=== PATIENT | female | born 1945 | race Caucasian/White ===

== ENCOUNTER 2017-04-16 05:11 | Inpatient (IN) | payer OTHER ==
[2017-03-29 09:11] VITALS: Ht 165.1 cm; Wt 85.8 kg
--- NOTE | 2017-03-29 09:45 | PAT Medication Instructions ---
Service Date Mar 29, 2017. Current Home Medication List Aspirin (Aspirin Ec), 81 MG PO QAM Atorvastatin (Lipitor), 40 MG PO HS Calcium Carbonate-Cholecalcife (Caltrate 600+D), 1 TAB PO BID Hydrocodone/Acetaminophen 5MG/325MG ([place] 5MG/325MG), 1 TABLET PO HS PRN for Pain Losartan Potassium (Cozaar), 50 MG PO QAM Meloxicam (Mobic), 15 MG PO QAM Misc Natural Products (Osteo Bi-Flex Triple Stre), 1 TAB PO BID Multivitamin (Multivitamin), 1 TAB PO QAM Naproxen (Aleve), 440 MG PO BID Omeprazole (Prilosec), 20 MG PO QAM Sertraline (Zoloft), 50 MG PO QAM Medication Instructions For Your Scheduled Surgery -Contact your surgeon for instructions for: Meloxicam (Mobic), 15 MG PO QAM Naproxen (Aleve), 440 MG PO BID - Hold the following medications 2 weeks prior to surgery: Misc Natural Products (Osteo Bi-Flex Triple Stre), 1 TAB PO BID - Hold the following medications the morning of surgery: Multivitamin (Multivitamin), 1 TAB PO QAM Losartan Potassium (Cozaar), 50 MG PO QAM Calcium Carbonate-Cholecalcife (Caltrate 600+D), 1 TAB PO BID - Take the following medications the morning of surgery with a sip of water: Omeprazole (Prilosec), 20 MG PO QAM Sertraline (Zoloft), 50 MG PO QAM Aspirin (Aspirin Ec), 81 MG PO QAM Hydrocodone/Acetaminophen 5MG/325MG ([place] 5MG/325MG), 1 TABLET PO HS PRN for Pain (if needed, can be taken up to four hours before surgery) - Take the following medications as scheduled the night before surgery: Calcium Carbonate-Cholecalcife (Caltrate 600+D), 1 TAB PO BID Atorvastatin (Lipitor), 40 MG PO HS Hydrocodone/Acetaminophen 5MG/325MG ([place] 5MG/325MG), 1 TABLET PO HS PRN for Pain (if needed) If you have any questions please call us at [phone] or [phone] or [phone]
--- NOTE | 2017-03-29 10:31 | DIAGNOSTIC IMAGING REPORT ---
CHEST 2 VIEWS ROUTINE HISTORY: 71 years-old Female pat preoperative exam. No acute chest complaints COMPARISON: None available TECHNIQUE: PA and lateral views of the chest FINDINGS: Cardiomediastinal and hilar silhouettes are within normal limits. There is no pneumothorax, pleural effusion, focal airspace consolidation or overt pulmonary edema. Mild right hemidiaphragmatic elevation. Mild degenerative changes are seen within the shoulders and spine. IMPRESSION: No acute process. The above report was generated using voice recognition software. It may contain grammatical, syntax or spelling errors. Electronically signed by: Floyd Shipley M.D. 03/29/2017 10:30 AM Dictated Date/Time: 03/29/2017 10:29 AM
[2017-03-29 11:22] LABS: BASO % 0.5 %; BASO ABS # 0.03 K/uL (0-0.2); EOS % 3.1 %; HEMOGLOBIN 12.5 g/dL (12.0-16.0); IG# 0.01 K/uL (0.00-0.02); LYMPH % 21.4 %; LYMPH ABS # 1.37 K/uL (1.2-3.4); MEAN CELL VOLUME 87.2 fL (80-100); MEAN CORPUSCULAR HEMOGLOBIN 28.7 pg (25-34); MEAN CORPUSCULAR HGB CONC 32.9 g/dl (32-36); MEAN PLATELET VOLUME 10.6 fL (7.4-10.4); MONO % 10.5 %; MONO ABS # 0.67 K/uL (0.11-0.59); NEUT % 64.3 %; NEUT ABS # 4.12 K/uL (1.4-6.5); PLATELET COUNT 236 K/uL (130-400); RED CELL DISTRIBUTION WIDTH CV 13.9 % (11.5-14.5); RED CELL DISTRIBUTION WIDTH SD 44.2 fL (36.4-46.3)
[2017-03-29 11:32] LABS: PTT PATIENT 27.4 SECONDS (21.0-31.0)
[2017-03-29 11:40] LABS: HEMOGLOBIN A1C 5.3 % (4.5-5.6)
[2017-03-29 11:52] LABS: ALBUMIN 3.9 gm/dl (3.4-5.0); CALCIUM 9.6 mg/dl (8.5-10.1); CREATININE 0.94 mg/dl (0.60-1.20); POTASSIUM 4.3 mmol/L (3.5-5.1)
--- NOTE | 2017-03-29 15:12 | HISTORY & PHYSICAL EXAMINATION ---
DATE OF ADMISSION: 04/16/2017 CHIEF COMPLAINT: Left hip pain. HISTORY OF PRESENT ILLNESS: Charisma is a 71-year-old female with a 2-year history of left hip pain. The patient rates her pain at 10/10. She has pain with her daily activities. She has limited standing and walking tolerance. Pain is worse with weightbearing. The patient has had hydrocodone, home exercise program, injections and sub acute care nurse over the years without relief. She has failed conservative treatment and is scheduled for a left hip replacement. PAST MEDICAL HISTORY: Hypertension, hypercholesterolemia. She denies heart disease, diabetes or DVT. PAST SURGICAL HISTORY: Hysterectomy and lumpectomy. SOCIAL HISTORY: The patient denies alcohol or tobacco use. She lives in a 2-maty home. She is and retired. FAMILY HISTORY: Negative for DVT. MEDICATIONS: Omeprazole 20 mg daily, multivitamin 1 daily, aspirin 81 mg daily, Caltrate 600 plus D2 tablets daily, Osteo Bi-Flex, glucosamine chondroitin, naproxen sodium 220 mg twice daily, sertraline 50 mg daily, losartan 50 mg daily, Meloxicam 15 mg daily, atorvastatin 40 mg daily, hydrocodone 5/325 p.r.n., Motrin 200 mg p.r.n., Advil 200 mg p.r.n. ALLERGIES: PENICILLIN CAUSED A RASH. REVIEW OF SYSTEMS: See HPI. Ten other systems reviewed, all negative. PHYSICAL EXAMINATION: VITAL SIGNS: Height 5 feet 5 inches, weight 189 pounds. BMI is 31. GENERAL: This is a well-developed, well-nourished female who is alert and oriented x3. Mood and affect are appropriate. HEENT: Normocephalic, atraumatic. Mucous membranes are moist and intact. NECK: Supple without lymphadenopathy. HEART: Regular rate and rhythm without murmurs, rubs or gallops. LUNGS: Clear to auscultation without wheezes or rhonchi. ABDOMEN: Soft and nontender. Bowel sounds are equal and active. EXTREMITIES: No ecchymosis, redness or warmth. ABDOMEN: Soft and nontender. Bowel sounds are equal and active. EXTREMITIES: No ecchymosis, redness or warmth. Thigh and calf are soft and nontender. Log roll of the hip reproduces pain in the groin. Range of motion is decreased. She is neurovascularly intact with +5/5 strength. She has +1 distal edema. She walks with an antalgic gait. X-RAY EXAMINATION: AP and lateral views show severe joint space narrowing and osteophyte formation. IMPRESSION: Degenerative joint disease, left hip. PLAN: The patient will be admitted for a left total hip arthroplasty. We will plan on aspirin for DVT prophylaxis.
[~2017-04-16] VITALS: Ht 165.1 cm; Wt 85.8 kg
[~2017-04-16 05:11] MED LIST: ASPI81TA28 PO; ATOR-24 PO; CALC-354 PO; HYDR-5688 PO; LOSA50TA6 PO; MELO7.5T5 PO; MISCTAB88 PO; MULT-506 PO; NAPR1TAB9 PO; PRLSR20 PO; SERT50TA PO
[2017-04-16 05:41] VITALS: BP 129/73; PULSE 92; TEMP 36.7; O2SAT 97
[2017-04-16] MEDS ORDERED: METOCLOPRAMIDE HCL 10 MG TAB PO SCH (06:00)
[2017-04-16] MEDS ORDERED: LACTATED RINGER'S 1000ML 500 ML IV SCH (06:00)
[2017-04-16] MEDS ORDERED: ACETAMINOPHEN 500 MG TAB PO SCH (06:00)
[2017-04-16] MEDS ORDERED: DEXAMETHASONE 4 MG TAB PO SCH (06:00)
[2017-04-16] MEDS ORDERED: LACTATED RINGER'S 1000ML 1,000 ML IV SCH (06:00)
[2017-04-16] MEDS ORDERED: TRANEXAMIC ACID INJ 1,000 MG x 2 Bags IV SCH ×2 (06:00)
[2017-04-16] MEDS ORDERED: CeleBREX 200 MG CAP PO SCH (06:00)
[2017-04-16] MEDS ORDERED: ROPIVACAINE 5MG/ML 30 ML 150 MG, BUPIVACAINE 0.5% MPF INJ 30 ML, EpINEphrine HCL INJ 0.... INFIL SCH ×8 (06:00)
[2017-04-16] MEDS ORDERED: GABAPENTIN 900 MG PO SCH (06:00)
[2017-04-16] MEDS ORDERED: CEFAZOLIN 2000MG IV PUSH 15 ML IV SCH (06:00)
[2017-04-16] MEDS ORDERED: FAMOTIDINE 20 MG TAB PO SCH (06:00)
[2017-04-16] MEDS ORDERED: MIDAZOLAM HCL 1 MG/ML 2ML VIAL ONE ×3 (06:25→12:39)
[2017-04-16] MEDS ORDERED: LIDOCAINE HCL 2% 2 ML VIAL (20MG/ML) ONE (06:25)
[2017-04-16] MEDS ORDERED: PROPOFOL IV EMULSION 10 MG/ML 20 ML VIAL IV ONE (06:25)
[2017-04-16] MEDS ORDERED: FENTANYL CITRATE INJ 50 MCG/1 ML 2 ML VIAL ONE (06:25)
[2017-04-16] MEDS ORDERED: BUPIVACAINE 0.5 % 5 MG/1 ML PF 10ML VIAL ONE (06:29)
[2017-04-16] MEDS ORDERED: ORTHO JOINT ANESTHETIC ONE (10:12)
[2017-04-16] MEDS ORDERED: POVIDONE-IODINE OP SOLN 30 ML BTL ONE (10:12)
[2017-04-16] MEDS ORDERED: BACITRACIN 50000 UNIT VIAL ONE (10:12)
[2017-04-16] MEDS ORDERED: VANCOMYCIN 1GM/270ML NSS ONE (10:12)
[2017-04-16] MEDS ORDERED: EpHEDrine SULFATE INJ 50 MG/ML AMP IV PRN (10:15)
[2017-04-16] MEDS ORDERED: ONDANSETRON INJ 2 MG/ML 2 ML VIAL IV PRN ×2 (10:15→12:15)
[2017-04-16] MEDS ORDERED: FENTANYL CITRATE INJ 50 MCG/1 ML 2 ML VIAL IV PRN (10:15)
[2017-04-16] MEDS ORDERED: HYDROmorphone INJ 1 MG/ML SYR IV PRN (10:15)
[2017-04-16] MEDS ORDERED: ATROPINE SULFATE 0.1 MG/ML 5ML SYR IV PRN (10:15)
[2017-04-16] MEDS ORDERED: GABAPENTIN 300 MG CAP PO ONE (10:22)
[2017-04-16] MEDS ORDERED: NURSING VERBAL MED ORDER ONE (10:30)
--- NOTE | 2017-04-16 10:33 | CARDIOLOGY CONSULTATION ---
DATE OF CONSULTATION: 04/16/2017 PERTINENT HISTORY: Mrs. Swan is a 71-year-old white female admitted today through the preoperative holding area for left hip replacement surgery with Dr. Colon. The patient was found to be in atrial fibrillation when placed on the monitor. This consultation was ordered to assist in her cardiac management. The patient has never known of a diagnosis of atrial fibrillation. She has never known of a cardiac event. She has never experienced palpitations or exercise intolerance. She further denies angina pectoris, limiting dyspnea, syncope, presyncope, PND, orthopnea, lower extremity edema, and claudication. We have had a long discussion regarding the management of atrial fibrillation. PAST MEDICAL HISTORY: 1. Paroxysmal atrial fibrillation. 2. Hypertension. 3. Hypercholesterolemia. 4. GERD. 5. Hysterectomy. 6. History of breast biopsy. OUTPATIENT MEDICATIONS: 1. Losartan 50 mg daily. 2. Lipitor 40 mg at bedtime. 3. Omeprazole 20 mg daily. 4. Caltrate 600 mg daily. 5. Zoloft 50 mg per day. 6. Multivitamin daily. 7. Aspirin 81 mg per day. ALLERGIES: PENICILLIN - RASH. SOCIAL HISTORY: The patient is and lives with her . Does not use tobacco or alcohol. She resides in [place], [place]. FAMILY HISTORY: No early coronary artery disease. REVIEW OF SYSTEMS: A 10-point review of systems was negative except for that described above. PHYSICAL EXAMINATION: GENERAL: This is a well-developed, well-nourished white female lying supine in bed without complaints. VITAL SIGNS: Blood pressure is 130/70 with an irregular pulse of 90. Respiratory rate is 18 and the patient is afebrile at 36.7 degrees Celsius. Saturations 97% on room air. HEENT: Negative. NECK: Supple with full carotid upstrokes. There are no carotid bruits. Jugular venous pressure is flat at 90 degrees. There is no thyromegaly. CARDIOVASCULAR: Reveals an irregular regular rhythm with distant heart sounds. No obvious murmurs. No S3. LUNGS: Clear without rales, rhonchi, or wheezes. ABDOMEN: Soft and nontender without bruits. EXTREMITIES: Reveal intact radial artery pulse bilaterally. There is no peripheral edema. DATA: CBC notes hemoglobin of 12.5, hematocrit 38.0, white count 6.4, and platelet count 236,000. Electrolytes note a sodium of 138, potassium 4.3, chloride 107, bicarbonate 25, BUN 34, creatinine 0.94, glucose 105. INR is normal at 1.0. Preoperative EKG performed on March 29 notes sinus rhythm without abnormalities. EKG done this morning notes atrial fibrillation with a controlled ventricular response. There is poor R-wave progression across the anterior precordium. There is a nonspecific ST abnormality. IMPRESSION: Mrs. Swan was diagnosed with paroxysmal atrial fibrillation this morning. This dysrhythmia is completely asymptomatic. We have discussed the importance of long-term anticoagulation and rate-controlling strategies. She is an acceptable risk for hip replacement surgery as planned for later today. Would simply use intravenous beta blockers to control her ventricular response if necessary. PLAN: 1. Acceptable cardiac risk for surgery. 2. Intravenous beta blockade as needed. 3. Will start long-term anticoagulation after she recovers from surgery. 4. Further recommendations depending on her clinical course. KUSH
--- NOTE | 2017-04-16 10:40 | History & Physical Bridge Note ---
H&P Re-Evaluation Bridge Note: I have examined the patient, reviewed the History & Physical and in the interval since the performance of the History & Physical I have noted the following changes of clinical significance: No changes noted
[2017-04-16] MEDS ORDERED: VANCOMYCIN 1GM/270ML NSS IV SCH (11:00)
[2017-04-16] MEDS ORDERED: GABAPENTIN 300 MG CAP PO SCH (11:00)
--- NOTE | 2017-04-16 11:39 | [facility] Post Operative Brief Note ---
Immediate Operative Summary Operative Date Apr 16, 2017. Pre-Operative Diagnosis Degenerative Joint Disease Left Hip Post-Operative Diagnosis Degenerative Joint Disease Left Hip Procedure(s) Performed Left Total Hip Arthroplasty--Uncemented Surgeon Dr. Colon Keno Writer / Runner Surgeon(s) BYRON Gil Estimated Blood Loss 100 ml Findings Consistent with Post-Op Diagnosis Specimens A. Left Femoral Head Anesthesia Type MAC Spinal Regional Complication(s) none Disposition Accompanied Pt To Recover: no Disposition: Recovery Room / PACU
--- NOTE | 2017-04-16 12:12 | OPERATIVE REPORT ---
DATE OF OPERATION: 04/16/2017 PREOPERATIVE DIAGNOSIS: Osteoarthritis, left hip. POSTOPERATIVE DIAGNOSIS: Osteoarthritis, left hip. PROCEDURE: Left [place] total hip arthroplasty. SURGEON: Dr. Colon. PORTFOLIO LEAD: Berry Zapata PA-C. ANESTHESIA: Spinal. COMPLICATIONS: None. IMPLANTS USED: Acetabular reamer used 52, acetabular shell 52, acetabular liner 36 mm inner diameter, femoral stem 3, and femoral head 36+0. PROCEDURE: Following induction of adequate spinal anesthesia, the patient was placed in right lateral decubitus position and a left Oniel-Langenbeck incision was made. Subcutaneous tissue was sharply dissected. Electrocautery used for hemostasis. The fascia was incised throughout the length of the wound and a rodríguez scissor placed beneath the short external rotators. The pyriformis was tagged with #1 Vicryl. The short external rotators were divided from the posterior aspect of the femur using electrocautery. These were swept posteriorly. A T-capsulotomy incision was made and the hip was dislocated using a combination of flexion, adduction, and internal rotation. Exposure of the femoral neck with old-style Hohmann and a blunt Hohmann was carried out and a femoral rasp was utilized as a guide for making the appropriate level femoral neck cut. This bone fragment was removed and reserved on the back table. Next, attention was turned to the acetabulum where bone hook was used to retract the femur while the offset retractors were placed anterior and posteriorly. A double-angled Hohmann was placed in superior and anterior position exposing the acetabulum nicely. Acetabular labrum as well as posterior capsule elements were removed using a long knife and a long pickup. Fovea centralis was cleared of all soft tissue. Sequential reamings were carried up to a 52 and decision was made to proceed with impaction of a 52 trabecular metal cup. This was impacted and held using a single 35 mm bone screw. The acetabular liner was placed with 15 of elevated posterior wall in the superior and posterior position. Next, attention was turned to the femoral portion of the case where a Bovie and pickup was used to further clear short external rotators from their insertion on the femur. Box osteotome was used to gain access to the femoral canal and the T-handled rasp and a rattail rasp were used to further open and lateral the canal. Sequentially raspings were carried up to a 3, which gave good fit and fill of the proximal femur. A trial reduction was carried out and a 132 degree femoral neck component was chosen as the size to be used. A 36+0 mm femoral head was impacted into position, +0 head was utilized. The trial reduction was stable in all degrees of rotation with no [id number] impingement. The hip was dislocated. The trial components were removed and the final femoral stem, neck, and femoral head combination were assembled on the back table and impacted into position. Hip was relocated. Range of motion checked once again successful and the wound was irrigated. The pyriformis repaired to the greater trochanter using #1 Vicryl [id number] suture. A Hemovac drain was placed and the fascia was closed using #1 Vicryl, subcutaneous tissue was closed using 0 Dexon, and skin was closed with fatou. Sterile dressing of Adaptic, 4 x 4's, ABDs, and foam tape was applied. The patient tolerated the procedure well. Due to the complex nature of the procedure, the entire surgery was performed with the operational assistance of Berry Zapata PA-C. The teachers assistant, under direct supervision, was involved in the actual performance of all aspects of the surgical procedure including hemostasis, tissue retraction and incision, instrument management, patient positioning, and wound closure. DISPOSITION: Recovery room, stable. I attest to the content of the Intraoperative Record and any orders documented therein. Any exception s are noted below.
[2017-04-16] MEDS ORDERED: METOCLOPRAMIDE HCL INJ 5 MG/ML 2 ML VIAL IV PRN (12:15)
[2017-04-16] MEDS ORDERED: ZOLPIDEM TARTRATE 5 MG TAB PO PRN (12:15)
[2017-04-16] MEDS ORDERED: VANCOMYCIN CONSULT ACTIVE PRN (12:15)
[2017-04-16] MEDS ORDERED: ALUMINUM/MAGNESIUM/SIMETH (MAALOX MAX) 30 ML UDC PO PRN (12:15)
[2017-04-16] MEDS ORDERED: MoRPHine SULFATE 2 MG/ML CARP IV PRN (12:15)
[2017-04-16] MEDS ORDERED: MAGNESIUM HYDROXIDE SUSP 30 ML UDC PO PRN (12:15)
[2017-04-16] MEDS ORDERED: METOPROLOL TARTRATE 1 MG/ML VIAL ONE (12:39)
--- NOTE | 2017-04-16 12:58 | DIAGNOSTIC IMAGING REPORT ---
AP PELVIS AND LEFT HIP 2 VIEWS CLINICAL HISTORY: Postop hip arthroplasty COMPARISON STUDY: No previous studies for comparison. FINDINGS: There are postsurgical changes of a total left hip arthroplasty. There is no dislocation. There are no acute fractures. There are overlying surgical drains. IMPRESSION: Postsurgical changes of a total left hip arthroplasty Electronically signed by: Joss Kumar M.D. 04/16/2017 12:57 PM Dictated Date/Time: 04/16/2017 12:56 PM
--- NOTE | 2017-04-16 13:13 | Anesthesiology Progress Note ---
Anesthesia Post Op Note Date & Time Apr 16, 2017 at 13:05 Vital Signs Pain Intensity: 0 Vital Signs Past 12 Hours Date Time Temp Pulse Resp B/P (MAP) Pulse Ox O2 Delivery O2 Flow Rate FiO2 04/16/17 12:50 89 16 116/94 98 Nasal Cannula 2 04/16/17 12:40 80 14 101/72 98 Nasal Cannula 2 04/16/17 12:30 95 16 94/74 98 Oxymask 10 04/16/17 12:20 90 16 94/67 100 Oxymask 10 04/16/17 12:10 37.8 103 16 114/76 100 Oxymask 10 04/16/17 05:41 36.7 92 18 129/73 97 Room Air Notes Mental Status: alert / awake / arousable, participated in evaluation Pt Amnestic to Procedure: Yes Nausea / Vomiting: adequately controlled Pain: adequately controlled Airway Patency, RR, SpO2: stable & adequate BP & HR: stable & adequate Hydration State: stable & adequate Neuraxial Anesthesia: was administered, sensory block is resolving Anesthetic Complications: no major complications apparent The patient is a 71y/o female with a h/o HTN, DLD, GERD, obesity and recent URI who is s/p L TKA with Dr. Colon. The patient was found to be in atrial fibrillation in preop today with a HR of 80-90s. She was asymptomatic and all vital signs were stable. Per the patient, she has no prior history of atrial fibrillation and her preop EKG from showed NSR HR 72. The patient has been under a lot of stress this week with her upcoming surgery and her being in and out of the hospital. Cardiology was consulted preop and Dr. Flor came and evaluated the patient in holding. He stated that the patient likely has paroxysmal atrial fibrillation. He stated that he did not see any reason to delay surgery for further workup given that the patient is asymptomatic and she does not have a rapid ventricular response. He stated that he will continued to follow the patient postoperatively. The patient is doing well in recovery. She has no complaints. She was given metoprolol 3mg IV intraoperatively and although she remains in atrial fibrillation her HR is in the 80s. All other vital signs are stable. She will be transferred to telemetry for further monitoring.
[2017-04-16] MEDS: D5W AND 1/2NSS + 20MEQ KCL 1,000 ML IV SCH (15:57)
[2017-04-16 16:00] VITALS: BP 111/55; PULSE 65; TEMP 36.9; O2SAT 95
[2017-04-16] MEDS: ACETAMINOPHEN 500 MG TAB PO SCH ×2 (16:04→20:14)
[2017-04-16] MEDS: KETOROLAC TROMETHAMINE 15 MG/ML VIAL IV. SCH ×2 (16:05→20:12)
[2017-04-16] MEDS: FERROUS GLUCONATE 324 MG TAB PO SCH (16:06)
[2017-04-16] MEDS: OXYCODONE HCL IR 5 MG TAB (IMMEDIATE RELEASE) PO PRN (18:41)
[2017-04-16 19:07] VITALS: BP 125/65; PULSE 64; TEMP 36.6; O2SAT 96
[2017-04-16 19:51] VITALS: BP 124/75; PULSE 90; TEMP 36.7; O2SAT 95
[2017-04-16 20:00] VITALS: O2SAT 95
[2017-04-16] MEDS: MoRPHine SULFATE 2 MG/ML CARP IV PRN (20:11)
[2017-04-16] MEDS: ATORVASTATIN 40 MG TAB PO SCH (20:12)
[2017-04-16] MEDS: DOCUSATE SODIUM 100 MG CAP PO SCH (20:13)
[2017-04-16] MEDS ORDERED: VANCOMYCIN INJ 1,250 MG in SODIUM CHLORIDE 0.9% 250ML 250 ML IV SCH (22:00)
[2017-04-16 23:30] VITALS: BP 112/66; PULSE 81; TEMP 36.7; O2SAT 96
[2017-04-17] VITALS (8 sets, daily range): BP systolic 102–132; BP diastolic 58–75; PULSE 79–89; TEMP 36.3–36.9; O2SAT 95–97
[2017-04-17] MEDS: D5W AND 1/2NSS + 20MEQ KCL 1,000 ML IV SCH ×2 (02:04→11:44)
[2017-04-17] MEDS: MoRPHine SULFATE 4 MG/ML 1 ML CARP\\VIAL IV PRN ×2 (03:07→04:22)
[2017-04-17] MEDS: KETOROLAC TROMETHAMINE 15 MG/ML VIAL IV. SCH ×2 (04:22→10:26)
[2017-04-17] MEDS: ACETAMINOPHEN 500 MG TAB PO SCH ×3 (05:53→21:38)
--- NOTE | 2017-04-17 07:00 | Orthopedic Progress Note ---
Orthopedic Progress Note Date of Service Apr 17, 2017. Subjective Post OP Day: 1 Reports: feeling well Additional Notes: Pt in telemetry overnight for monitoring new onset A-fib, now in NSR per nurse' s note Objective N/V intact, dressing C/D/I (Hemovac and Prevena in place), toes mobile Date Time Temp Pulse Resp B/P (MAP) Pulse Ox O2 Delivery O2 Flow Rate FiO2 04/17/17 04:00 95 Room Air 04/17/17 03:50 36.5 86 18 105/58 (74) 96 Room Air 04/17/17 00:00 95 Room Air 2.0 04/16/17 23:30 36.7 81 18 112/66 (81) 96 Room Air 04/16/17 20:00 95 Room Air 2.0 04/16/17 19:51 36.7 90 17 124/75 (91) 95 Room Air 04/16/17 16:00 36.9 65 20 111/55 (73) 95 Room Air 04/16/17 13:55 82 16 117/71 99 Nasal Cannula 2 04/16/17 13:40 37.1 79 16 108/63 98 Nasal Cannula 2 04/16/17 13:25 37.1 86 16 134/69 98 Nasal Cannula 2 04/16/17 13:10 93 16 93/65 99 Nasal Cannula 2 04/16/17 13:00 101 16 122/68 97 Nasal Cannula 2 04/16/17 12:50 89 16 116/94 98 Nasal Cannula 2 04/16/17 12:40 80 14 101/72 98 Nasal Cannula 2 04/16/17 12:30 95 16 94/74 98 Oxymask 10 04/16/17 12:20 90 16 94/67 100 Oxymask 10 04/16/17 12:10 37.8 103 16 114/76 100 Oxymask 10 Laboratory Results 24 Hours: Test 04/17/17 04:44 Assessment & Plan Assessment: 71 yo female stable POD #1 s/p left GAVINO Plan: 1. Med management- transfer to ortho floor per medicine 2. DVT prophylaxis- Xarelto, SCDs 3. PT/OT 4. D/C planning- pt interested in [facility]
[2017-04-17] MEDS ORDERED: DEXAMETHASONE INJ 10 MG in SYRINGE 0 ML IV SCH (07:30)
[2017-04-17 07:45] LABS: EOS % 0.1 %; EOS ABS # 0.01 K/uL (0-0.5); HEMATOCRIT 27.9 % (37-47); HEMOGLOBIN 9.3 g/dL (12.0-16.0); IG# 0.04 K/uL (0.00-0.02); LYMPH % 9.1 %; LYMPH ABS # 1.05 K/uL (1.2-3.4); MEAN CELL VOLUME 85.1 fL (80-100); MEAN CORPUSCULAR HEMOGLOBIN 28.4 pg (25-34); MEAN CORPUSCULAR HGB CONC 33.3 g/dl (32-36); MEAN PLATELET VOLUME 10.2 fL (7.4-10.4); MONO % 6.8 %; MONO ABS # 0.79 K/uL (0.11-0.59); NEUT % 83.7 %; PLATELET COUNT 239 K/uL (130-400); RED CELL DISTRIBUTION WIDTH CV 13.5 % (11.5-14.5); RED CELL DISTRIBUTION WIDTH SD 41.9 fL (36.4-46.3); WHITE BLOOD COUNT 11.59 K/uL (4.8-10.8)
--- NOTE | 2017-04-17 08:01 | Anesthesiology Progress Note ---
Anesthesia Post Op Note Date & Time Apr 17, 2017 at 08:01 Vital Signs Pain Intensity: 0.0 Vital Signs Past 12 Hours Date Time Temp Pulse Resp B/P (MAP) Pulse Ox O2 Delivery O2 Flow Rate FiO2 04/17/17 07:45 36.3 83 19 102/66 (78) 96 Room Air 04/17/17 04:00 95 Room Air 04/17/17 03:50 36.5 86 18 105/58 (74) 96 Room Air 04/17/17 00:00 95 Room Air 2.0 04/16/17 23:30 36.7 81 18 112/66 (81) 96 Room Air Notes Mental Status: alert / awake / arousable, participated in evaluation Pt Amnestic to Procedure: Yes Nausea / Vomiting: adequately controlled Pain: adequately controlled Airway Patency, RR, SpO2: stable & adequate BP & HR: stable & adequate Hydration State: stable & adequate Neuraxial Anesthesia: was administered, sensory block resolved Anesthetic Complications: no major complications apparent
[2017-04-17 08:13] LABS: CALCIUM 8.6 mg/dl (8.5-10.1); CREATININE 0.75 mg/dl (0.60-1.20); POTASSIUM 4.3 mmol/L (3.5-5.1)
[2017-04-17] MEDS: MULTIVITAMIN TAB PO SCH (08:36)
[2017-04-17] MEDS: DOCUSATE SODIUM 100 MG CAP PO SCH ×2 (08:36→20:47)
[2017-04-17] MEDS: PANTOprazole SOD 40 MG TAB PO SCH (08:37)
[2017-04-17] MEDS: LOSARTAN POTASSIUM 50 MG TAB PO SCH (08:37)
[2017-04-17] MEDS: SERTRALINE HCL 50 MG TAB PO SCH (08:37)
[2017-04-17] MEDS: FERROUS GLUCONATE 324 MG TAB PO SCH ×3 (08:38→17:22)
[2017-04-17] MEDS: ASPIRIN 81 MG ECTAB PO SCH (08:38)
[2017-04-17] MEDS ORDERED: MAGNESIUM SULFATE 1GM / D5W 1 GM in PREMIXED IN D5W 100 ML IV ONE (09:00)
--- NOTE | 2017-04-17 10:15 | Medical Consult ---
Consultation Date of Consultation: Apr 17, 2017. Attending Physician: Jin Colon M.D. Reason for Consultation: Medical management History of Present Illness This is a 71 y/o female with a history of HTN, HLD, anxiety/depression, osteoarthritis and GERD who presents s/p left GAVINO with Dr. Colon on 04/16 for medical management. Yesterday pre-operatively, the patient was found to be in rate-controlled a-fib. She has no known previous history of a-fib. Cardiology was consulted at that time who recommended continuing with the surgery and initiating medical terminologist anticoagulation after recovery from the surgery. On tele overnight, the patient converted back to sinus rhythm. Postoperatively, the patient reports feeling well. Her left hip pain is well controlled. She reports doing well with physical therapy. She is eating, urinating and passing gas without issue postop. She has not yet had a bowel movement. The patient states she had a URI prior to surgery and still complains of a residual non- productive cough. She also notes CHAN while working with physical therapy but otherwise denies SOB at rest. The patient denies fevers, chills, sweats, chest pain, palpitations, claudication, wheezing, shortness of breath at rest, nausea , vomiting, abdominal pain, dysuria, hematuria, urinary retention, paralysis, weakness, numbness and tingling. Past Medical/Surgical History HTN HLD Anxiety/depression Osteoarthritis GERD H/o hysterectomy due to endometriosis H/o left breast biopsies, no malignancy found Family History Breast cancer Colon cancer Diabetes mellitus Social History Smoking Status: Former Smoker (remote; smoked for about 5 years, quit when she was 27) Smokeless Tobacco Use: No Alcohol Use: socially (1-2 glasses of wine per week) Drug Use: none Marital Status: Housing Status: lives with significant other Occupation Status: retired Allergies Coded Allergies: Penicillins (Verified Allergy, Unknown, RASH IN MOUTH AND ON SKIN, 04/16/17) Current Inpatient Medications Current Inpatient Medications Medications (Trade) Dose Ordered Sig/Leola Route Start Time Stop Time Status Last Admin Dose Admin Potassium Chloride/Dextrose/ Sod Cl 1,000 ml @ 100 mls/hr Q10H IV 04/16/17 15:15 04/17/17 12:11 04/17/17 02:04 100 MLS/HR Celecoxib (CeleBREX CAP) 200 mg BID PO 04/17/17 21:00 05/17/17 20:59 Oxycodone HCl (Roxicodone Immediate Rel Tab) 1 TABLET FOR PAIN RATING... Q4H PRN PO 04/16/17 12:15 04/30/17 12:14 04/16/17 18:41 5 MG Acetaminophen (Tylenol Tab) 1,000 mg Q8H PO 04/16/17 14:00 05/16/17 13:59 04/17/17 05:53 1,000 MG Magnesium Hydroxide (Milk Of Magnesia Susp) 30 ml Q6H PRN PO 04/16/17 12:15 05/16/17 12:14 Docusate Sodium (coLACE CAP) 100 mg BID PO 04/16/17 21:00 05/16/17 20:59 04/17/17 08:36 100 MG Diphenhydramine HCl (Benadryl Cap) 25 mg Q8H PRN PO 04/16/17 12:15 05/16/17 12:14 Al Hydrox/Mg Hydrox/Simethicone (Maalox Max Susp) 15 ml Q4H PRN PO 04/16/17 12:15 05/16/17 12:14 Zolpidem Tartrate (Ambien Tab) 5 mg HSZ PRN PO 04/16/17 12:15 05/16/17 12:14 Multivitamins (Multivitamin Tab) 1 tab QAM PO 04/17/17 09:00 05/17/17 08:59 04/17/17 08:36 1 TAB Ondansetron HCl (Zofran Inj) 4 mg Q6H PRN IV 04/16/17 12:15 05/16/17 12:14 Metoclopramide HCl (Reglan Inj) 10 mg Q6H PRN IV 04/16/17 12:15 05/16/17 12:14 Ferrous Gluconate (Ferrous Gluconate Tab) 324 mg TIDM PO 04/16/17 16:45 05/16/17 17:59 04/17/17 08:38 324 MG Pantoprazole Sodium (Protonix Tab) 40 mg QAM PO 04/17/17 09:00 05/17/17 08:59 04/17/17 08:37 40 MG Rivaroxaban (Xarelto Tab) 10 mg Q24H PO 04/17/17 12:00 05/21/17 12:01 Aspirin (Ecotrin Tab) 81 mg QAM PO 04/17/17 09:00 05/17/17 08:59 04/17/17 08:38 81 MG Atorvastatin Calcium (Lipitor Tab) 40 mg HS PO 04/16/17 21:00 05/16/17 20:59 04/16/17 20:12 40 MG Losartan Potassium (coZAAR TAB) 50 mg QAM PO 04/17/17 09:00 05/17/17 08:59 04/17/17 08:37 50 MG Sertraline HCl (Zoloft Tab) 50 mg QAM PO 04/17/17 09:00 05/17/17 08:59 04/17/17 08:37 50 MG Morphine Sulfate (MoRPHine SULFATE INJ) 2 mg Q2HWA PRN IV 04/16/17 12:30 04/30/17 12:29 04/16/17 20:11 2 MG Morphine Sulfate (MoRPHine SULFATE INJ) 4 mg Q2HWA PRN IV 04/16/17 12:30 04/30/17 12:29 04/17/17 04:22 4 MG Review of Systems See HPI for pertinent positives and negatives. All other systems reviewed and negative. Physical Exam Date Time Temp Pulse Resp B/P (MAP) Pulse Ox O2 Delivery O2 Flow Rate FiO2 04/17/17 07:45 36.3 83 19 102/66 (78) 96 Room Air 04/17/17 04:00 95 Room Air 04/17/17 03:50 36.5 86 18 105/58 (74) 96 Room Air 04/17/17 00:00 95 Room Air 2.0 04/16/17 23:30 36.7 81 18 112/66 (81) 96 Room Air 04/16/17 20:00 95 Room Air 2.0 04/16/17 19:51 36.7 90 17 124/75 (91) 95 Room Air 04/16/17 16:00 36.9 65 20 111/55 (73) 95 Room Air 04/16/17 13:55 82 16 117/71 99 Nasal Cannula 2 04/16/17 13:40 37.1 79 16 108/63 98 Nasal Cannula 2 04/16/17 13:25 37.1 86 16 134/69 98 Nasal Cannula 2 04/16/17 13:10 93 16 93/65 99 Nasal Cannula 2 04/16/17 13:00 101 16 122/68 97 Nasal Cannula 2 04/16/17 12:50 89 16 116/94 98 Nasal Cannula 2 04/16/17 12:40 80 14 101/72 98 Nasal Cannula 2 04/16/17 12:30 95 16 94/74 98 Oxymask 10 04/16/17 12:20 90 16 94/67 100 Oxymask 10 04/16/17 12:10 37.8 103 16 114/76 100 Oxymask 10 General appearance: +Obese. Well-developed, well-nourished, no apparent distress Head: Normocephalic, atraumatic Eyes: Normal inspection, PERRL, EOMI ENT: Normal ENT inspection, hearing grossly normal, pharynx normal Neck: Supple, no JVD, trachea midline Respiratory/Chest: Lungs clear to auscultation, normal breath sounds, no respiratory distress Cardiovascular: Regular rate & rhythm, no gallop, no murmur Abdomen/GI: Normal bowel sounds, non-tender, soft Extremities/Musculoskeletal: +Left hip TTP, hemovac and wound vac in place. Normal inspection, no calf tenderness, no pedal edema Neurological/Psych: Alert, normal mood/affect, oriented x 3 Skin: Normal color, warm/dry, no rash Laboratory Results Last 24 Hours Test 04/17/17 07:26 White Blood Count 11.59 K/uL Red Blood Count 3.28 M/uL Hemoglobin 9.3 g/dL Hematocrit 27.9 % Mean Corpuscular Volume 85.1 fL Mean Corpuscular Hemoglobin 28.4 pg Mean Corpuscular Hemoglobin Concent 33.3 g/dl Platelet Count 239 K/uL Mean Platelet Volume 10.2 fL Neutrophils (%) (Auto) 83.7 % Lymphocytes (%) (Auto) 9.1 % Monocytes (%) (Auto) 6.8 % Eosinophils (%) (Auto) 0.1 % Basophils (%) (Auto) 0.0 % Neutrophils # (Auto) 9.70 K/uL Lymphocytes # (Auto) 1.05 K/uL Monocytes # (Auto) 0.79 K/uL Eosinophils # (Auto) 0.01 K/uL Basophils # (Auto) 0.00 K/uL RDW Standard Deviation 41.9 fL RDW Coefficient of Variation 13.5 % Immature Granulocyte % (Auto) 0.3 % Immature Granulocyte # (Auto) 0.04 K/uL Sodium Level 139 mmol/L Potassium Level 4.3 mmol/L Chloride Level 108 mmol/L Carbon Dioxide Level 24 mmol/L Anion Gap 7.0 mmol/L Blood Urea Nitrogen 22 mg/dl Creatinine 0.75 mg/dl Est Creatinine Clear Calc Drug Dose 76.6 ml/min Estimated GFR () 94.3 Estimated GFR (Non- 81.3 BUN/Creatinine Ratio 29.6 Random Glucose 140 mg/dl Calcium Level 8.6 mg/dl Magnesium Level 1.6 mg/dl Thyroid Stimulating Hormone (TSH) 0.449 uIu/ml Assessment & Plan 71 y/o female with a history of HTN, HLD, anxiety/depression, osteoarthritis and GERD who presents s/p left GAVINO with Dr. Colon on 04/16 for medical management. S/p left GAVINO--POD #1 -Pain management. DVT prophylaxis, and PT/OT as per primary team -Pain controlled, AVSS Paroxysmal a-fib--stable, now back in NSR -Cardiology consulted, appreciate recs: IV beta kelvin prn while on tele. Recommend group home anticoagulation -Would recommend full dose Xarelto 20 mg PO qd when ok with surgery. Currently on Xarelto 10 mg -Magnesium low at 1.6, TSH WNL -Converted back to NSR, stable to transfer to med/surg Hypomagnesemia -Magnesium 1.6 on 04/17, replace prn -Magnesium sulfate 1 gm IV x 1 -Continue to monitor Acute blood loss anemia -Hgb 9.3 on 04/17, down from 12.5 preoperatively -Continue to monitor, no need to transfuse at this time HTN, HLD--stable -Continue losartan 50 mg PO qd, Lipitor 40 mg PO qd Anxiety/depression--stable -Continue Zoloft 50 mg PO qd Code Status -Level I, FULL RESUSCITATION STATUS Thank you for this consultation. Attending Consult Note & Attestation - Pt seen/examined, chart reviewed, care plan d/w BYRON Miller. I agree w/ the weinberg components of her consult documentation. 71yo female - no heart history except for HTN - who presented for elective left THR yesterday by Dr. Colon. Incidentally was noted to be in rate-controlled a. fib at time of presentation to the surgical waiting area. Cleared by cardiology to proceed with her surgery; she did well from an ortho and cardiovascular standpoint. Converted to NSR overnight. Has remained in NSR since. Had NO palpitations when she was in a. fib. NO recent CV symptoms. PMH, PSH, allergies, meds, sochx, famhx, ros - reviewed gen - nad neck - no JVD heart - RRR, s1, s2, no murmur lungs - CTA b/l, minimal dry rales left base abd - soft, NT, ND, BS+ ext - no edema; left hip with dressing intact A/P: 1. PAF - resolved. CHADS-VASc is a 3 - agree with cardiology systemic anticoagulation recommended. Agree w/ xarelto - if ok with ortho would increase dose to 20mg daily at d/c. Low mag could have contributed. TSH wnl. Check echo to ensure normal valve function and LV function. Consider changing losartan to toprol xl in the event she ever returns to a. fib. 2. constipation - add senna/miralax. 3. HTN - controlled. other plans per Ms. Miller. Deejay Carmona MD
--- NOTE | 2017-04-17 11:30 | CARDIOLOGY PROGRESS NOTE ---
DATE: 04/17/2017 SUBJECTIVE: Mrs. Swan is resting comfortably in bedside chair without complaints of chest pain, dyspnea, or palpitations. Postoperative pain is adequately controlled. OBJECTIVE: VITAL SIGNS: Blood pressure is 102/66 with a regular pulse of 80. Respiratory rate is 18. The patient is afebrile at 36.3 degree Celsius. Saturation 96% on room air. NECK: Supple with full carotid upstrokes. No carotid bruits. Jugular venous pressure is flat at 90 degrees. There is no thyromegaly. CARDIOVASCULAR: Reveals a regular rhythm with normal S1, S2. Heart sounds are distant. No obvious murmurs. LUNGS: Clear without rales, rhonchi, or wheezes. ABDOMEN: Obese without bruits. EXTREMITIES: Show intact radial artery pulses bilaterally. There is no peripheral edema. Left hip is dressed. DIAGNOSTIC DATA: CBC notes hemoglobin 9.3, hematocrit 27.9, white count 11.5, platelet count 239,000. Electrolytes show sodium of 139, potassium 4.3, chloride 108, bicarb 24, BUN 22, creatinine 0.75, glucose 140. TSH is normal at 0.449. Magnesium level is low at 1.6. hand paster currently notes sinus rhythm. She did have episodes of sinus tachycardia with PACs. There was 1 episode of atrial fibrillation with a ventricular response of approximately 100. IMPRESSION AND PLAN: 1. Paroxysmal atrial fibrillation -- patient will start on low dose Xarelto at 10 mg daily. Would increase to 20 mg daily at the time of her discharge. Would like to start low dose long acting beta blockade, however, her blood pressure is limiting at this time. We may add later in her hospitalization or as an outpatient. 2. Hypertension -- controlled. 3. Hypercholesterolemia -- continue statin. 4. Status post left total hip replacement -- per Dr. Colon. 5. Disposition -- stable for transfer to the floor.
[2017-04-17] MEDS: RIVAROXABAN 10 MG TAB PO SCH (11:44)
[2017-04-17] MEDS: OXYCODONE HCL IR 5 MG TAB (IMMEDIATE RELEASE) PO PRN (17:25)
[2017-04-17] MEDS: ATORVASTATIN 40 MG TAB PO SCH (20:47)
[2017-04-17] MEDS: CeleBREX 200 MG CAP PO SCH (20:47)
[2017-04-18] MEDS: OXYCODONE HCL IR 5 MG TAB (IMMEDIATE RELEASE) PO PRN ×4 (00:17→20:13)
[2017-04-18] MEDS: MoRPHine SULFATE 2 MG/ML CARP IV PRN (02:04)
[2017-04-18 06:12] LABS: HEMATOCRIT 28.6 % (37-47); HEMOGLOBIN 9.4 g/dL (12.0-16.0); MEAN CELL VOLUME 86.4 fL (80-100); MEAN CORPUSCULAR HEMOGLOBIN 28.4 pg (25-34); MEAN CORPUSCULAR HGB CONC 32.9 g/dl (32-36); PLATELET COUNT 236 K/uL (130-400); RED CELL DISTRIBUTION WIDTH CV 13.6 % (11.5-14.5); RED CELL DISTRIBUTION WIDTH SD 43.2 fL (36.4-46.3); WHITE BLOOD COUNT 10.96 K/uL (4.8-10.8)
[2017-04-18] MEDS: ACETAMINOPHEN 500 MG TAB PO SCH ×3 (06:29→21:41)
[2017-04-18 06:48] LABS: CALCIUM 9.5 mg/dl (8.5-10.1); CREATININE 0.8 mg/dl (0.60-1.20); POTASSIUM 3.9 mmol/L (3.5-5.1)
--- NOTE | 2017-04-18 07:16 | Orthopedic Progress Note ---
Orthopedic Progress Note Date of Service Apr 18, 2017. Subjective Post OP Day: 2 Reports: feeling well (Pt now on med/surg from Telemetry) Objective calves soft nontender, N/V intact, dressing C/D/I (Prevena in place), toes mobile Date Time Temp Pulse Resp B/P (MAP) Pulse Ox O2 Delivery O2 Flow Rate FiO2 04/17/17 23:30 Room Air 04/17/17 23:08 36.6 79 17 128/72 (90) 97 Room Air 04/17/17 18:13 36.5 82 20 120/75 (90) 96 Room Air 04/17/17 18:00 Room Air 04/17/17 17:11 36.9 89 20 97 04/17/17 16:00 Room Air 04/17/17 15:31 36.9 89 20 132/70 (90) 97 Room Air 04/17/17 12:00 Room Air 04/17/17 11:45 36.7 84 18 102/64 (77) 96 Room Air 04/17/17 08:00 Room Air 04/17/17 07:45 36.3 83 19 102/66 (78) 96 Room Air Laboratory Results 24 Hours: Test 04/17/17 07:26 04/18/17 05:57 White Blood Count 11.59 K/uL Red Blood Count 3.28 M/uL Hemoglobin 9.3 g/dL 9.4 g/dL Hematocrit 27.9 % 28.6 % Mean Corpuscular Volume 85.1 fL Mean Corpuscular Hemoglobin 28.4 pg Mean Corpuscular Hemoglobin Concent 33.3 g/dl Platelet Count 239 K/uL Mean Platelet Volume 10.2 fL Neutrophils (%) (Auto) 83.7 % Lymphocytes (%) (Auto) 9.1 % Monocytes (%) (Auto) 6.8 % Eosinophils (%) (Auto) 0.1 % Basophils (%) (Auto) 0.0 % Neutrophils # (Auto) 9.70 K/uL Lymphocytes # (Auto) 1.05 K/uL Monocytes # (Auto) 0.79 K/uL Eosinophils # (Auto) 0.01 K/uL Basophils # (Auto) 0.00 K/uL Assessment & Plan Assessment: 71 yo female stable POD #2 s/p left GAVINO Plan: 1. Med management- 2. DVT prophylaxis- Xarelto, SCDs 3. PT/OT 4. D/C planning- d/c to [facility] tomorrow
--- NOTE | 2017-04-18 07:27 | Discharge Instructions ---
Discharge Instructions Date of Service Apr 18, 2017. Admission Reason for Admission: Left Hip Osteoarthritis Discharge Discharge Diagnosis / Problem: Left hip arthritis Discharge Goals Goal(s): Decrease discomfort, Improve function Activity Recommendations Activity Limitations: as noted below Weightbearing Status: Left weightbearing (as tolerated) . Instructions / Follow-Up Instructions / Follow-Up ACTIVITY RECOMMENDATIONS: SELF CARE INSTRUCTIONS AFTER TOTAL HIP REPLACEMENT Until the incision and soft tissues around your hip have healed, there is a possibility that the hip prosthesis could dislocate. A. Observe the following precautions to prevent dislocation: 1. Don't bend your hip greater than 90 degrees. 2. Avoid crossing your legs or ankles while standing or lying. 3. Sit with your feet placed 6 inches apart. 4. When sitting, keep your knees below your hips. Sit on a firm surface, avoid deep, soft chairs and couches. Use an elevated toilet seat in the bathroom. 5. Don't bend over at the waist. Use a long handled shoehorn and a sock aid to help you put on your shoes and socks. A handbag operator can help you leaf size picker objects that are too high or too low to reach. 6. Keep car riding to a minimum for at least one month after surgery. B. Your balance may be shaky for a while. Use crutches or a walker until directed by your doctor. C. Use hand rails when walking on stairs. D. Wear low heeled shoes with non-slip soles. E. Be sure that your floors are free of things that could trip you - throw rugs , electrical cords, small objects. Avoid wet and waxed floors, especially with crutches and canes. F. Try to walk several times a day with rest periods between. G. Continue with all the exercises taught to you in the hospital. Again, make walking a part of your daily routine. SPECIAL CARE INSTRUCTIONS: VERY IMPORTANT TO READ AND REVIEW A. You may still be at risk for phlebitis and blood clots. 1. Wear surgical stockings (CHAYA hose) for 2 weeks after surgery to improve circulation and reduce swelling. 2. Take Aspirin 81mg twice daily for 4 weeks or as directed by your doctor. This is your blood thinner. 3. High risk patients may be prescribed a stronger blood thinner if necessary. 4. If you are on Coumadin normally, your family doctor/shag truck driver should monitor your blood work. Expect a phone call the day of or the day after bloodwork is drawn to adjust your dosage. B. You must take antibiotics before having dental work, bladder, bowel and other surgery. Your doctor will provide you with a permanent card to carry describing precautions. C. Call [facility] if you have a fever, redness or swelling around the incision, cloudy drainage from incision, or sudden increase in pain in your hip, not relieved by your regular pain medication. D. Please call the office at if you have any concerns or questions about your operation or recovery. * YOU MAY SHOWER, NO TUB BATHS UNTIL CLEARED BY YOUR DOCTOR. * WEAR CHAYA HOSE 20 HOURS PER DAY FOR 2 WEEKS. * YOU SHOULD USE A WALKER OR CRUTCHES FOR 2-4 WEEKS. THIS WILL HELP PREVENT STRAIN ON YOUR HIP MUSCLE AND ALLOW IT TO HEAL PROPERLY. YOU MAY WEAN TO A CANE TOLERATED. * MOST PATIENTS WILL HAVE HOME NURSING FOR THERAPY. IF YOU DECIDE TO DO OUTPATIENT PHYSICAL THERAPY, PLEASE SCHEDULE THIS 3 TIMES PER WEEK. Prevena- This is a large suction dressing covering your incision. This will help pull any excess drainage from the wound and allow your incision to heal properly. You may shower with this if you can keep the unit outside of the shower. If any bleeding or leakage is noted please call your doctor's office. This will remain on your incision for 7 days and then should be removed. This can be done yourself or by the home nursing staff if applicable. The entire unit is disposable once removed. Once removed, keep incision clean and dry. If redness or drainage is noted, please call your surgeon. FOLLOW UP VISIT: If appointment is not already scheduled: Please call [facility] to make a follow-up appointment for 2 weeks after your surgery at . Current Hospital Diet Patient's current hospital diet: Regular Diet Discharge Diet Recommended Diet: Regular Diet Procedures Procedures Performed: Left Total Hip Arthroplasty--Uncemented Pending Studies Studies pending at discharge: no Laboratory Results Hemoglobin A1c Test 03/29/17 09:57 Range/Units Estimated Average Glucose 105 mg/dl Hemoglobin A1c 5.3 4.5-5.6 % Medical Emergencies . Who to Call and When: Medical Emergencies: If at any time you feel your situation is an emergency, please call 911 immediately. . Non-Emergent Contact Non-Emergency issues call your: Surgeon Call Non-Emergent contact if: temperature is above 101.5, your pain is not controlled, wound has increased drainage, wound has increased redness . "Provider Documentation" section prepared by Berry Zapata PA-C. . [place] Drug Monitoring Program Search Results: patient reviewed within database, no issues identified
[2017-04-18] MEDS: PANTOprazole SOD 40 MG TAB PO SCH (07:46)
[2017-04-18 07:51] VITALS: BP 110/70; PULSE 75; TEMP 36.7; O2SAT 97
[2017-04-18 08:03] VITALS: O2SAT 97
[2017-04-18] MEDS: ASPIRIN 81 MG ECTAB PO SCH (08:38)
[2017-04-18] MEDS: DOCUSATE SODIUM 100 MG CAP PO SCH ×2 (08:38→20:47)
[2017-04-18] MEDS: SERTRALINE HCL 50 MG TAB PO SCH (08:38)
[2017-04-18] MEDS: MULTIVITAMIN TAB PO SCH (08:39)
[2017-04-18] MEDS: LOSARTAN POTASSIUM 50 MG TAB PO SCH (08:39)
[2017-04-18] MEDS: CeleBREX 200 MG CAP PO SCH ×2 (08:39→20:47)
[2017-04-18] MEDS: FERROUS GLUCONATE 324 MG TAB PO SCH ×3 (08:39→17:46)
[2017-04-18] MEDS ORDERED: XRL20 PO (08:58)
[2017-04-18] MEDS: POLYETHYLENE (MIRALAX) 17 GM PACK PO SCH (09:06)
[2017-04-18] MEDS: SENNA 8.6 MG TAB PO SCH (09:06)
--- NOTE | 2017-04-18 10:32 | CARDIOLOGY PROGRESS NOTE ---
DATE: 04/18/2017 SUBJECTIVE: Mrs. Swan is resting comfortably in bedside chair without complaints of chest pain, dyspnea, or palpitations. OBJECTIVE: VITAL SIGNS: Blood pressure is 110/70 with a regular pulse of 75. Respiratory rate is 18. The patient is afebrile at 36.7 degrees Celsius. Saturation 97% on room air. NECK: Supple with full carotid upstrokes. No carotid bruits. Jugular venous pressure is flat at 90 degrees. There is no thyromegaly. CARDIOVASCULAR: Reveals a regular rhythm with normal S1, S2. Heart sounds are distant. No obvious murmurs. LUNGS: Clear without rales, rhonchi, or wheezes. ABDOMEN: Soft without bruits. EXTREMITIES: Show intact radial artery pulses bilaterally. There is no peripheral edema. Left hip is dressed. LABORATORY DATA: CBC notes hemoglobin of 9.4, hematocrit 28.6, white count 10.9, platelet count 236,000. Electrolytes note a sodium of 141, potassium 3.9, chloride 110, bicarbonate 24, BUN 21, creatinine 0.8, glucose 94. INR is 1.0. IMPRESSION AND PLAN: 1. Paroxysmal atrial fibrillation -- patient has remained in sinus rhythm by physical examination. As noted previously, would change from 10 mg to 20 mg of Xarelto daily at the time of her discharge. Have not started a low dose beta blockade due to her relative hypotension. 2. Hypertension -- controlled. 3. Hypercalcemia -- continue statin. 4. Status post left total hip replacement as per Dr. Colon.
[2017-04-18 11:39] VITALS: BP 113/69; PULSE 70; TEMP 36.5; O2SAT 96
--- NOTE | 2017-04-18 12:36 | ECHOCARDIOGRAM REPORT ---
*NOTICE TO RECEIVING [employer] This information is strictly Confidential and protected under [place] law. [place] law prohibits you from making any further disclosure of this information unless further disclosure is expressly permitted by the written consent of the person to whom it pertains or is authorized by law. A general authorization for the release of medical or other information is not sufficient for this purpose. Hospital accepts no responsibility if the information is made available to any other person, INCLUDING THE PATIENT. Interpretation Summary * Name: LYNETTE FLORES Study Date: 04/18/2017 07:18 AM BP: 128/72 mmHg * Patient Location: .3E\S\E314\S\1 HR: 72 * : 1945 (M/d/yyyy) Gender: Female Height: 65 in * Age: 71 yrs Ethnicity: CA Weight: 189 lb * Ordering Physician: Deejay Carmona * Referring Physician: Jin Colon * Performed By: Randee Rothman RDCS * * Reason For Study: A-fib * BSA: 1.9 m2 * -- Conclusions -- * Left ventricular systolic function is normal. * No regional wall motion abnormalities noted. * Ejection Fraction = 55-60%. * Diastolic dysfunction, Grade II (pseudonormalization pattern). Procedure Details * A complete two-dimensional transthoracic echocardiogram was performed (2D, M-mode, Doppler and color flow Doppler). Left Ventricle * The left ventricle is normal in size. * There is normal left ventricular wall thickness. * Ejection Fraction = 55-60%. * Left ventricular systolic function is normal. * No regional wall motion abnormalities noted. Right Ventricle * The right ventricle is normal size. * The right ventricular systolic function is normal as assessed by tricuspid annular plane systolic excursion (TAPSE) (normal >1.5 cm). Atria * The left atrial size is normal. * Right atrial size is normal. * No ASD detected; PFO is not assessed. Mitral Valve * The mitral valve leaflets appear normal. There is no evidence of stenosis, fluttering, or prolapse. * There is no mitral valve stenosis. * Significant mitral regurgitation is absent. Tricuspid Valve * The tricuspid valve is not well visualized, but is grossly normal. * There is no tricuspid stenosis. * Significant tricuspid regurgitation is absent. Aortic Valve * The aortic valve is not well visualized. * The aortic valve opens well. * Aortic stenosis is absent. * Trace aortic regurgitation. Pulmonic Valve * The pulmonary valve is not well seen, but the Doppler examination is normal without significant regurgitation or stenosis. Great Vessels * The aortic root is normal size. * The pulmonary is not well visualized. Pericardium/Pleural * There is no pericardial effusion. Great Vessels * Normal inferior vena cava size and collapsability with sniff indicates a normal right atrial pressure of 3 mmHg Left Ventricular Diastolic Function * Diastolic dysfunction, Grade II (pseudonormalization pattern). MMode 2D Measurements and Calculations IVSd 0.73 cm LVIDd 3.9 cm LVIDs 2.7 cm LVPWd 0.81 cm IVS/LVPW 0.89 FS 30.1 % EDV(Teich) 65.3 ml ESV(Teich) 27.3 ml EF(Teich) 58.1 % EDV(cubed) 58.6 ml ESV(cubed) 20.0 ml EF(cubed) 65.9 % LV mass(C)d 84.4 grams LV mass(C)dI 43.7 grams/m\S\2 SV(Teich) 37.9 ml SI(Teich) 19.6 ml/m\S\2 SV(cubed) 38.6 ml SI(cubed) 20.0 ml/m\S\2 Ao root diam 2.6 cm Ao root area 5.2 cm\S\2 ACS 1.9 cm LA dimension 2.7 cm asc Aorta Diam 3.0 cm LA/Ao 1.1 LVOT diam 1.9 cm LVOT area 2.9 cm\S\2 LVAd ap4 24.7 cm\S\2 LVLd ap4 7.3 cm EDV(MOD-sp4) 69.2 ml EDV(sp4-el) 70.8 ml LVAs ap4 13.6 cm\S\2 LVLs ap4 5.5 cm ESV(MOD-sp4) 28.1 ml ESV(sp4-el) 28.5 ml EF(MOD-sp4) 59.4 % EF(sp4-el) 59.8 % LVAd ap2 25.0 cm\S\2 LVLd ap2 6.8 cm EDV(MOD-sp2) 75.9 ml EDV(sp2-el) 77.5 ml LVAs ap2 14.9 cm\S\2 LVLs ap2 5.8 cm ESV(MOD-sp2) 32.8 ml ESV(sp2-el) 32.5 ml EF(MOD-sp2) 56.8 % EF(sp2-el) 58.1 % LVLd %diff -6.50 % EDV(MOD-bp) 73.1 ml LVLs %diff 5.7 % ESV(MOD-bp) 30.9 ml EF(MOD-bp) 57.8 % SV(MOD-sp4) 41.1 ml SI(MOD-sp4) 21.3 ml/m\S\2 SV(MOD-sp2) 43.1 ml SI(MOD-sp2) 22.3 ml/m\S\2 SV(MOD-bp) 42.3 ml SI(MOD-bp) 21.9 ml/m\S\2 SV(sp4-el) 42.3 ml SI(sp4-el) 21.9 ml/m\S\2 SV(sp2-el) 45.0 ml SI(sp2-el) 23.3 ml/m\S\2 Doppler Measurements and Calculations MV E max judith 128.1 cm/sec MV A max judith 72.8 cm/sec MV E/A 1.8 MV dec time 0.18 sec Ao V2 max 152.9 cm/sec Ao max PG 9.4 mmHg Ao max PG (full) 6.3 mmHg CHAD(V,A) 1.7 cm\S\2 CAHD(V,D) 1.7 cm\S\2 AI max judith 411.8 cm/sec AI max PG 67.9 mmHg AI dec slope 260.3 cm/sec\S\2 AI P1/2t 463.3 msec LV V1 max PG 3.1 mmHg LV V1 max 87.8 cm/sec PA V2 max 88.2 cm/sec PA max PG 3.1 mmHg PA acc slope 818.9 cm/sec\S\2 PA acc time 0.06 sec TR max judith 270.1 cm/sec PA pr(Accel) 50.5 mmHg
[2017-04-18] MEDS: RIVAROXABAN 10 MG TAB PO SCH (12:42)
--- NOTE | 2017-04-18 13:12 | Hospitalist Progress Note ---
Hospitalist Progress Note Date of Service Apr 18, 2017. (Raya Miller ., BYRON-C) Subjective Pt evaluation today including: conversation w/ patient, conversation w/ family (daughter at bedside), physical exam, chart review, lab review, review of studies, review of inpatient medication list Pain: None PO Intake: Tolerating PO diet Voiding: no voiding problems Patient reports feeling well. She states her left hip pain is well managed and she is doing well with physical therapy. Orthopedics anticipates discharge tomorrow. She is passing gas but still no bowel movement. The patient denies fevers, chills, sweats, chest pain, palpitations, claudication, cough, wheezing , shortness of breath, nausea, vomiting, abdominal pain, dysuria, hematuria, urinary retention, paralysis, weakness, numbness and tingling. Additional Comments: See HPI for pertinent positives and negatives. All other systems reviewed and negative. (Raya Miller ., PA-C) Objective Vital Signs Date Time Temp Pulse Resp B/P (MAP) Pulse Ox O2 Delivery O2 Flow Rate FiO2 04/18/17 11:39 36.5 70 15 113/69 (84) 96 Room Air 04/18/17 08:03 97 Room Air 04/18/17 07:51 36.7 75 15 110/70 (83) 97 Room Air 04/18/17 07:40 Room Air 04/17/17 23:30 Room Air 04/17/17 23:08 36.6 79 17 128/72 (90) 97 Room Air 04/17/17 18:13 36.5 82 20 120/75 (90) 96 Room Air 04/17/17 18:00 Room Air 04/17/17 17:11 36.9 89 20 97 04/17/17 16:00 Room Air 04/17/17 15:31 36.9 89 20 132/70 (90) 97 Room Air (Raya Miller ., BYRON-C) Physical Exam Notes: General appearance: +Obese. Well-developed, well-nourished, no apparent distress Head: Normocephalic, atraumatic Eyes: Normal inspection, PERRL, EOMI ENT: Normal ENT inspection, hearing grossly normal, pharynx normal Neck: Supple, no JVD, trachea midline Respiratory/Chest: Lungs clear to auscultation, normal breath sounds, no respiratory distress Cardiovascular: Regular rate & rhythm, no gallop, no murmur Abdomen/GI: Normal bowel sounds, non-tender, soft Extremities/Musculoskeletal: +Left hip TTP, wound vac in place. Hemovac removed. Normal inspection, no calf tenderness, no pedal edema Neurological/Psych: Alert, normal mood/affect, oriented x 3 Skin: Normal color, warm/dry, no rash (Raya Miller ., BYRON-C) Laboratory Results Last 24 Hours Test 04/18/17 05:57 White Blood Count 10.96 K/uL Red Blood Count 3.31 M/uL Hemoglobin 9.4 g/dL Hematocrit 28.6 % Mean Corpuscular Volume 86.4 fL Mean Corpuscular Hemoglobin 28.4 pg Mean Corpuscular Hemoglobin Concent 32.9 g/dl RDW Standard Deviation 43.2 fL RDW Coefficient of Variation 13.6 % Platelet Count 236 K/uL Mean Platelet Volume 10.0 fL Sodium Level 141 mmol/L Potassium Level 3.9 mmol/L Chloride Level 110 mmol/L Carbon Dioxide Level 24 mmol/L Anion Gap 7.0 mmol/L Blood Urea Nitrogen 21 mg/dl Creatinine 0.80 mg/dl Est Creatinine Clear Calc Drug Dose 71.8 ml/min Estimated GFR () 87.2 Estimated GFR (Non- 75.2 BUN/Creatinine Ratio 26.7 Random Glucose 94 mg/dl Calcium Level 9.5 mg/dl Magnesium Level 2.1 mg/dl (Raya Miller, PA-C) Diagnostic Results Echocardiogram: Interpretation Summary * Name: LYNETTE FLORES Study Date: 04/18/2017 07:18 AM BP: 128/72 mmHg * Patient Location: [id number]\S\E314\S\1 HR: 72 * : 1945 (M/d/yyyy) Gender: Female Height: 65 in * Age: 71 yrs Ethnicity: CA Weight: 189 lb * Ordering Physician: Deejay Carmona * Referring Physician: Jin Colon * Performed By: Randee Rothman RDCS * * Reason For Study: A-fib * BSA: 1.9 m2 * -- Conclusions -- * Left ventricular systolic function is normal. * No regional wall motion abnormalities noted. * Ejection Fraction = 55-60%. * Diastolic dysfunction, Grade II (pseudonormalization pattern). Procedure Details * A complete two-dimensional transthoracic echocardiogram was performed (2D, M-mode, Doppler and color flow Doppler). Left Ventricle * The left ventricle is normal in size. * There is normal left ventricular wall thickness. * Ejection Fraction = 55-60%. * Left ventricular systolic function is normal. * No regional wall motion abnormalities noted. Right Ventricle * The right ventricle is normal size. * The right ventricular systolic function is normal as assessed by tricuspid annular plane systolic excursion (TAPSE) (normal >1.5 cm). Atria * The left atrial size is normal. * Right atrial size is normal. * No ASD detected; PFO is not assessed. Mitral Valve * The mitral valve leaflets appear normal. There is no evidence of stenosis, fluttering, or prolapse. * There is no mitral valve stenosis. * Significant mitral regurgitation is absent. Tricuspid Valve * The tricuspid valve is not well visualized, but is grossly normal. * There is no tricuspid stenosis. * Significant tricuspid regurgitation is absent. Aortic Valve * The aortic valve is not well visualized. * The aortic valve opens well. * Aortic stenosis is absent. * Trace aortic regurgitation. Pulmonic Valve * The pulmonary valve is not well seen, but the Doppler examination is normal without significant regurgitation or stenosis. Great Vessels * The aortic root is normal size. * The pulmonary is not well visualized. Pericardium/Pleural * There is no pericardial effusion. Great Vessels * Normal inferior vena cava size and collapsability with sniff indicates a normal right atrial pressure of 3 mmHg Left Ventricular Diastolic Function * Diastolic dysfunction, Grade II (pseudonormalization pattern). (Raya Miller ., PA-C) Assessment and Plan 71 y/o female with a history of HTN, HLD, anxiety/depression, osteoarthritis and GERD who presents s/p left GAVINO with Dr. Colon on 04/16 for medical management. S/p left GAVINO--POD #2 -Pain management. DVT prophylaxis, and PT/OT as per primary team -Pain controlled, AVSS Paroxysmal a-fib--stable, now back in NSR -Cardiology consulted, appreciate recs: Recommend [facility] anticoagulation -Would recommend full dose Xarelto 20 mg PO qd. Spoke to orthopedics, ok to start full anticoagulation at discharge tomorrow. -Pt does not have prescription coverage, Xarelto very expensive out of pocket. Nurse Navigator working with family to see if pt qualifies for [employer] program to receive Xarelto for free. Will also give 1 month free w/ card. Will plan on Xarelto 20 mg PO qd for now. If not able to qualify for this program, would need warfarin instead. -TSH WNL -Converted back to NSR, stable to transfer to med/surg -Echo shows LVEF 55-60%, no WMA. Grade II diastolic dysfunction Hypomagnesemia--resolved -Magnesium 2.1 on 04/18 Acute blood loss anemia--stable -Hgb 12.5 preoperatively -Hgb stable in 9s -Continue to monitor, no need to transfuse at this time. Hemovac removed HTN, HLD--stable -Continue losartan 50 mg PO qd, Lipitor 40 mg PO qd Anxiety/depression--stable -Continue Zoloft 50 mg PO qd Code Status -Level I, FULL RESUSCITATION STATUS Pt. is stable from a medical standpoint, we will sign off. Clear for discharge as per primary team. (Raya Miller ., DAMON) Reviewed: Pt Seen/Exam by Me (Chayo Reagan MD) History Physician Parachute Rigger Supervision Note: I interviewed and examined the patient. Discussed with BYRON Miller and agree with findings and plan as documented in the note. Any exceptions or clarifications are listed here: Pt feeling well. Pain controlled. No CP or SOB, no palpitations. Daughter reports that pt has been under a tremendous amount of stress prior to surgery as has been in the hospital and is now in SNF. Daughter also reports pt was witnessed to have significant periods of apnea and snoring when she slept in the hotel room with her the night prior to surgery. Vitals reviewed NAD, AAOx3 RRR no mgr CTAB no wcr breathing unlabored Abd soft NT ND Ext no edema, left hip with dressing in place c/d/i Pt is a 71 yo female with left GAVINO POD#2, with new onset atrial fibrillation with normal rate found in preop period. ECHO with grade II chronic diastolic CHF and no valvular disease, normal EF. -start Xarelto 20mg tomorrow and continue indefinitely for CVA prevention -no need for rate control meds at this point -check overnight oximetry tonight to look for CANDI---> if POx<88% for at least 5 min consecutively, would recommend she remain on 2 LNC nocturnally at SNF and on dc to home until has formal sleep study. Documented By: Chayo Reagan (Chayo Reagan MD)
[2017-04-18 15:11] VITALS: BP 101/57; PULSE 78; TEMP 36.7; O2SAT 96
[2017-04-18] MEDS: ATORVASTATIN 40 MG TAB PO SCH (20:47)
[2017-04-18 22:47] VITALS: BP 123/78; PULSE 78; TEMP 37.1; O2SAT 94
[2017-04-18 23:30] VITALS: O2SAT 97
[2017-04-19 05:33] VITALS: PULSE 79; O2SAT 97
[2017-04-19] MEDS: ACETAMINOPHEN 500 MG TAB PO SCH (05:37)
[2017-04-19] MEDS: PANTOprazole SOD 40 MG TAB PO SCH (05:38)
[2017-04-19 06:01] LABS: HEMATOCRIT 27.4 % (37-47); HEMOGLOBIN 9.3 g/dL (12.0-16.0); MEAN CELL VOLUME 85.4 fL (80-100); MEAN CORPUSCULAR HGB CONC 33.9 g/dl (32-36); MEAN PLATELET VOLUME 9.6 fL (7.4-10.4); PLATELET COUNT 257 K/uL (130-400); RED CELL DISTRIBUTION WIDTH CV 13.7 % (11.5-14.5); RED CELL DISTRIBUTION WIDTH SD 42.8 fL (36.4-46.3); WHITE BLOOD COUNT 11.04 K/uL (4.8-10.8)
[2017-04-19 06:11] VITALS: BP 118/62; PULSE 71; TEMP 36.6; O2SAT 97
[2017-04-19 06:36] LABS: CREATININE 0.86 mg/dl (0.60-1.20)
--- NOTE | 2017-04-19 07:20 | Orthopedic Progress Note ---
Orthopedic Progress Note Date of Service Apr 19, 2017. Subjective Post OP Day: 3 Reports: feeling well Objective calves soft nontender, N/V intact, dressing C/D/I (Prevena in place), toes mobile Date Time Temp Pulse Resp B/P (MAP) Pulse Ox O2 Delivery O2 Flow Rate FiO2 04/19/17 06:11 36.6 71 16 118/62 (80) 97 Room Air 04/19/17 05:33 79 18 97 Room Air 04/18/17 23:30 97 Room Air 04/18/17 22:47 37.1 78 16 123/78 (93) 94 Room Air 04/18/17 15:11 36.7 78 18 101/57 (72) 96 Room Air 04/18/17 15:10 Room Air 04/18/17 11:39 36.5 70 15 113/69 (84) 96 Room Air 04/18/17 08:03 97 Room Air 04/18/17 07:51 36.7 75 15 110/70 (83) 97 Room Air 04/18/17 07:40 Room Air Laboratory Results 24 Hours: Test 04/19/17 05:49 Hematocrit 27.4 % Hemoglobin 9.3 g/dL Assessment & Plan Assessment: 71 yo female stable POD #3 s/p left GAVINO Plan: 1. Med management- 2. DVT prophylaxis- Hermelinda Babb 3. PT/OT 4. D/C planning- d/c to [facility]
[2017-04-19] MEDS ORDERED: ACET-24 PO (07:24)
[2017-04-19] MEDS ORDERED: RXC5 PO (07:24)
[2017-04-19] MEDS ORDERED: CLB200 PO (07:24)
[2017-04-19] MEDS: SENNA 8.6 MG TAB PO SCH (07:47)
[2017-04-19] MEDS: DOCUSATE SODIUM 100 MG CAP PO SCH (07:47)
[2017-04-19] MEDS: ASPIRIN 81 MG ECTAB PO SCH (07:47)
[2017-04-19] MEDS: LOSARTAN POTASSIUM 50 MG TAB PO SCH (07:47)
[2017-04-19] MEDS: SERTRALINE HCL 50 MG TAB PO SCH (07:47)
[2017-04-19] MEDS: MULTIVITAMIN TAB PO SCH (07:47)
[2017-04-19] MEDS: FERROUS GLUCONATE 324 MG TAB PO SCH (07:48)
[2017-04-19] MEDS: CeleBREX 200 MG CAP PO SCH (07:48)
[2017-04-19] MEDS: POLYETHYLENE (MIRALAX) 17 GM PACK PO SCH (07:48)
[2017-04-19] MEDS: OXYCODONE HCL IR 5 MG TAB (IMMEDIATE RELEASE) PO PRN (07:53)
[2017-04-19 10:08] VITALS: BP 118/62; PULSE 71; TEMP 36.6; O2SAT 97
[2017-04-19] MEDS ORDERED: ENOXAPARIN 1 MG/KG SQ SCH (11:30)
--- NOTE | 2017-04-19 12:48 | CARDIOLOGY PROGRESS NOTE ---
DATE: 04/19/2017 SUBJECTIVE: Mrs. Vazquez is resting comfortably in bed without complaints of chest pain or dyspnea. She also denies palpitations. She had a recurrence of her atrial dysrhythmia. She is anxious for hospital discharge. OBJECTIVE: VITAL SIGNS: Blood pressure 118/62 with a regular pulse of 70. Respiratory rate is 16. The patient is afebrile at 36.6 degrees Celsius. Saturation is 97% on room air. NECK: Supple with full carotid upstrokes. No carotid bruits. Jugular venous pressure is flat at 90 degrees. There is no thyromegaly. CARDIOVASCULAR: Reveals a regular rhythm with normal S1 and S2. Heart sounds are distant. No obvious murmurs. LUNGS: Clear without rales, rhonchi, or wheezes. ABDOMEN: Soft without bruits. EXTREMITIES: Reveal intact radial pulse bilaterally. Left hip is dressed. LABORATORY DATA: CBC notes a hemoglobin of 9.3, hematocrit 27.4, white count 11.0, and platelet count 257,000. Electrolytes note a sodium of 140, potassium 4.0, chloride 110, bicarbonate 26, BUN 19, creatinine 0.86, and glucose 93. Magnesium level is normal at 1.8. Echocardiogram performed yesterday noted normal left ventricular systolic function without wall motion abnormalities. Estimated ejection fraction is 55%-60%. There is evidence of diastolic dysfunction, but no valvular pathology. IMPRESSION AND PLAN: 1. Paroxysmal atrial fibrillation - fortunately, the patient converted to sinus rhythm and has remained there since her initial episode. Suggest changing her Xarelto to 20 mg daily for stroke prophylaxis. No low dose beta blockade at this time due to her relatively low blood pressure. 2. Hypertension -- controlled. 3. Hypercholesterolemia -- continue statin. 4. Status post left THR -- per Dr. Colon. 5. Disposition -- stable for hospital discharge. I will see the patient in followup in our [place] office. I will make those arrangements.
[2017-04-19] MEDS ORDERED: WARFARIN SOD 5 MG TAB PO SCH (16:00)
== END 2017-04-19 10:49 | DRG 470 ==
LOC: C.ACU 05:11 → C.2T 07:00 → ENRESERV 14:12 → C.3E 04-17 18:03
PROC: 0SRB0JA Replacement of Left Hip Joint with Synthetic Substitute, Uncemented, Open Approach (ICD-10-PCS; principal; 2017-04-16 07:00)
DX: M16.12 Unilateral primary osteoarthritis, left hip (principal); D62 Acute posthemorrhagic anemia; I50.32 Chronic diastolic (congestive) heart failure; I48.0 Paroxysmal atrial fibrillation; E83.42 Hypomagnesemia; K59.00 Constipation, unspecified; I11.0 Hypertensive heart disease with heart failure; E78.00 Pure hypercholesterolemia, unspecified; K21.9 Gastro-esophageal reflux disease without esophagitis; F41.9 Anxiety disorder, unspecified; F32.9 Major depressive disorder, single episode, unspecified; Z79.899 Other long term (current) drug therapy; Z79.82 Long term (current) use of aspirin; Z79.1 Long term (current) use of non-steroidal anti-inflammatories (NSAID); Z88.0 Allergy status to penicillin

== ENCOUNTER 2019-01-14 05:34 | Inpatient (IN) ==
--- NOTE | 2018-12-24 16:14 | PAT Medication Instructions ---
Medication Instructions Date of Service December 24, 2018 Continue as directed acetaminophen [Tylenol Extra Strength] 1,000 mg PO Q8H PRN aspirin 325 mg PO QAM 12/18/18 [History Confirmed 12/18/18] atorvastatin 40 mg PO HS 12/18/18 [History Confirmed 12/18/18] calcium carbonate-vitamin D3 [Calcium 600 + D(3)] 1 cap PO BID lactobacillus combination no.4 [Probiotic] 3,000 mmu cells PO QAM losartan 50 mg PO QAM 12/18/18 [History Confirmed 12/18/18] meloxicam 15 mg PO QAM 12/18/18 [History Confirmed 12/18/18] multivitamin 1 tab PO QAM 12/18/18 [History Confirmed 12/18/18] omeprazole 20 mg PO QAM 12/18/18 [History Confirmed 12/18/18] sertraline 50 mg PO QAM 12/18/18 [History Confirmed 12/18/18] ASK your surgeon for instructions meloxicam 15 mg PO QAM 12/18/18 [History Confirmed 12/18/18] ASK your prescriber and surgeon aspirin 325 mg PO QAM 12/18/18 [History Confirmed 12/18/18] DO NOT take the morning of surgery calcium carbonate-vitamin D3 [Calcium 600 + D(3)] 1 cap PO BID lactobacillus combination no.4 [Probiotic] 3,000 mmu cells PO QAM losartan 50 mg PO QAM 12/18/18 [History Confirmed 12/18/18] multivitamin 1 tab PO QAM 12/18/18 [History Confirmed 12/18/18] Take morning of surgery With a small sip of water, OTHERWISE NOTHING TO EAT OR DRINK AFTER MIDNIGHT: acetaminophen [Tylenol Extra Strength] 1,000 mg PO Q8H PRN (okay to take up to 4 hours prior to surgery if needed) omeprazole 20 mg PO QAM 12/18/18 [History Confirmed 12/18/18] sertraline 50 mg PO QAM 12/18/18 [History Confirmed 12/18/18] Take evening before surgery acetaminophen [Tylenol Extra Strength] 1,000 mg PO Q8H PRN (if needed) atorvastatin 40 mg PO HS 12/18/18 [History Confirmed 12/18/18] calcium carbonate-vitamin D3 [Calcium 600 + D(3)] 1 cap PO BID Other Notes If you have any questions please call us at [phone] or [phone] or [phone] or [phone]
--- NOTE | 2018-12-25 12:45 | Anesthesiology Consultation ---
Date of Service December 25, 2018 Assessment & Plan (1) Encounter for pre-operative examination: - Awaiting review preop testing (labs, EKG, CXR). - Awaiting cardiology preop evaluation scheduled 01/01 (Dr. Fany Jasso). - Awaiting surgeon-ordered PCP preop evaluation scheduled 01/06 (Dr. Lopez). - ASA instructions: okay to continue perioperatively per surgeon. Chart Review Chart Review: Patient seen in Pre Admission Testing Teaching & Discussion Pre-Anesthesia Teaching/Discussion Notes: Instructed NPO after midnight before surgery,except medications with 15 cc of water. Medication instructions provided according to the PAT guidelines. History Surgery Operation Date: 01/14/19 09:25 Proposed Procedures p Right Total Knee Arthroplasty - Jameson Kim DO Height/Weight Height: 5 ft 5 in Weight: 86 kg Allergies Allergy/AdvReac Type Severity Reaction Status Date / Time Penicillins Allergy Unknown RASH Verified 12/25/18 12:45 (MOUTH, SKIN) adhesive tape AdvReac Unknown RASH WITH Verified 12/18/18 10:14 TAPE Medications Home Medications Medication Instructions Recorded Confirmed Last Taken acetaminophen [Tylenol Extra 1,000 mg PO Q8H PRN 12/18/18 12/18/18 Unknown Strength] aspirin 325 mg PO QAM 12/18/18 12/18/18 Unknown atorvastatin 40 mg PO HS 12/18/18 12/18/18 Unknown calcium carbonate-vitamin D3 1 cap PO BID 12/18/18 12/18/18 Unknown [Calcium 600 + D(3)] lactobacillus combination no.4 3,000 mmu cells PO QAM 12/18/18 12/18/18 Unknown [Probiotic] losartan 50 mg PO QAM 12/18/18 12/18/18 Unknown meloxicam 15 mg PO QAM 12/18/18 12/18/18 Unknown multivitamin 1 tab PO QAM 12/18/18 12/18/18 Unknown omeprazole 20 mg PO QAM 12/18/18 12/18/18 Unknown sertraline 50 mg PO QAM 12/18/18 12/18/18 Unknown Past Medical History Medical History (Updated 12/25/18 @ 13:05 by Samantha Raymond) Atrial fibrillation GERD (gastroesophageal reflux disease) controlled Hyperlipidemia Hypertension Obesity Osteoarthritis Exercise / Class Metabolic Activity II 4-5 Yardwork/Stairs/Walk up hill (one flight of stairs (no chest pain/no sob)) Past Family History Family History Sister Family history of diabetes mellitus Mother Family hx of colon cancer Son Family history of diabetes mellitus Past Surgical History Surgical History History of colonoscopy History of hysterectomy History of total hip arthroplasty LEFT S/P breast lumpectomy LEFT-BENIGN Past Anesthesia History No Hx of Anesthesia Complications and No Family Hx of Anesthesia Complications History of PONV No Hx of PONV and No Hx of Motion Sickness Social History Smoking Status: Former smoker Do You Dip or Chew Tobacco: No Smoking End Date: QUIT IN Alcohol type: wine alcohol intake frequency: holidays/special occasions only Hx Substance Use: No Review of Systems Patient denies chest pain, shortness of breath, dyspnea on exertion, cough, wheezing, palpitations. Physical Exam Vital Signs VITALS BP 116/57 P 71 TEMP 98.4 SP02 95%RA RESP 16 PHYSICAL Full neck and c-spine range of motion. Full TMJ range of motion. TMD 2.5 finger breaths Mallampati Score 3 Dentition: missing side Lungs: clear throughout to auscultation Cardiac: regular rate and rhythm, no murmurs noted Spine: normal Carotid arteries: negative bruit Extremities: no edema Testing Echocardiogram Date: 04/18/17 EF 55-60%. No RWMA. Grade II DD. No significant valvular disease.
--- NOTE | 2018-12-25 13:32 | XRay Report ---
XR chest Pre-admission PA/Lat CLINICAL HISTORY: Preoperative chest COMPARISON STUDY: No previous studies for comparison. FINDINGS: The cardiac and mediastinal contours are normal. There is no evidence of focal pulmonary co nsolidation. There is no evidence of failure. No pleural effusions are visualized.[ IMPRESSION: No active disease in the chest. Electronically signed by: Joss Kumar M.D. 12/25/2018 1:30 PM
[2018-12-25 15:11] LABS: Albumin Level 3.9 gm/dl (3.4-5.0); BUN Creatinine Ratio 24.2 (10-20); Creatinine Clr Calc Pharmacy 60.1 ml/min; Est GFR (African American) 71.7; Est GFR (Non-African American) 61.8
[2018-12-25 15:11] LABS: Appearance Urine Clear (Clear); Bacteria Urine Automated Negative (Negative); Bilirubin Urine Negative (Negative); Blood Urine Negative (Negative); Cast Urine Automated 0 /lpf (0-5); Color Urine Yellow; Glucose Urine UA Negative (Negative); Ketones Urine Negative (Negative); Leukocyte Esterase Urine Trace (Negative); Nitrite Urine Negative (Negative); Protein Urine Negative (Negative); RBC Urine Automated 0-4 /hpf (0-4); Specific Gravity Urine 1.014 (1.000-1.030); Urobilinogen Urine Negative (Negative); pH Urine 6.5 (4.5-7.5)
[2018-12-25 15:14] LABS: Partial Thromboplastin Ratio 1.1; Partial Thromboplastin Time 29.4 Seconds (21.0-31.0); Prothrombin Time 10.3 Seconds (9.0-12.0)
[2018-12-25 15:58] LABS: Basophils # (auto) 0.02 K/uL (0-0.2); Basophils % (auto) 0.3 %; Eosinophils # (auto) 0.15 K/uL (0-0.5); Eosinophils % (auto) 2.2 %; Hematocrit (blood only) 38.1 % (37-47); Hemoglobin 12.6 g/dL (12.0-16.0); Immature Granulocytes # (auto) 0.01 K/uL (0.00-0.02); Immature Granulocytes % (auto) 0.1 %; Lymphocytes # (auto) 1.63 K/uL (1.2-3.4); Mean Corpuscular Hemoglobin 28.3 pg (25-34); Mean Corpuscular Hgb Conc 33.1 g/dL (32-36); Mean Corpuscular Volume 85.6 fL (80-100); Mean Platelet Volume 10.6 fL (7.4-10.4); Monocytes # (auto) 0.41 K/uL (0.11-0.59); Neutrophils # (auto) 4.56 K/uL (1.4-6.5); Neutrophils % (auto) 67.4 %; Platelet Count 264 K/uL (130-400); RDW Coefficient of Variation 14.3 % (11.5-14.5); RDW Standard Deviation 44.7 fL (36.4-46.3); Red Blood Count 4.45 M/uL (4.2-5.4); White Blood Count 6.78 K/uL (4.8-10.8)
[2018-12-26 05:37] LABS: Estimated Average Glucose 117 mg/dl; Hemoglobin A1C 5.7 % (4.5-5.6)
--- NOTE | 2019-01-12 11:20 | History & Physical Report ---
Date of Service January 12, 2019 Assessment & Plan (1) Degenerative joint disease of knee, right: I have indicated the patient for right total knee replacement. The risks, benefits and complications of surgery were explained to the patient which include but not limited to infection, acute blood loss, DVT/PE, injury to nerves, vessels, bone, soft tissue, arthrofibrosis, chronic pain, failure of the prosthesis, knee dislocation, leg length discrepancy, need for additional surgery, cardiac and pulmonary events and . The patient wished to proceed with surgery and informed consent was obtained at this time. We will plan for ASA BID post-operatively for DVT prophylaxis. Upon discharge the patient will be discharged home with home health services. Appropriate clearances by PCP and cardiology were obtained. The patient is asymptomatic for UTI. History of Present Illness Chief Complaint: Right knee pain/djd Primary Care Provider: Ronaldo Lopez The patient is a 73 year old female who presents with complaints of severe right knee pain and DJD. The patient has failed outpatient conservative treatments to this point which included NSAIDs, IA corticosteroid injection, home exercise/walking program. The patient's pain and limited function have progressed to the point where they severely hinder their activities of daily living and they no longer tolerate exercise programs. They are requesting to proceed with total knee replacement surgery. Allergies Allergy/AdvReac Type Severity Reaction Status Date / Time Penicillins Allergy Unknown RASH Verified 01/14/19 06:01 (MOUTH, SKIN) adhesive tape AdvReac Unknown RASH WITH Verified 01/14/19 06:01 TAPE Home Medications Home Medications Medication Instructions Recorded Confirmed Type acetaminophen [Tylenol Extra 1,000 mg PO Q8H PRN 12/18/18 01/14/19 History Strength] aspirin 325 mg PO QAM 12/18/18 01/14/19 History atorvastatin 40 mg PO HS 12/18/18 01/14/19 History calcium carbonate-vitamin D3 1 cap PO BID 12/18/18 01/14/19 History [Calcium 600 + D(3)] lactobacillus combination no.4 3,000 mmu cells PO QAM 12/18/18 01/14/19 History [Probiotic] losartan 50 mg PO QAM 12/18/18 01/14/19 History meloxicam 15 mg PO QAM 12/18/18 01/14/19 History multivitamin 1 tab PO QAM 12/18/18 01/14/19 History omeprazole 20 mg PO QAM 12/18/18 01/14/19 History sertraline 50 mg PO QAM 12/18/18 01/14/19 History diclofenac sodium [Voltaren] TOPICAL BID PRN 01/14/19 History Past Med/Surg History Medical History Atrial fibrillation GERD (gastroesophageal reflux disease) controlled Hyperlipidemia Hypertension Obesity Osteoarthritis Surgical History History of colonoscopy History of hysterectomy History of total hip arthroplasty LEFT S/P breast lumpectomy LEFT-BENIGN Family History Sister Family history of diabetes mellitus Mother Family hx of colon cancer Son Family history of diabetes mellitus Social History Preferred Language: Cypriot Communication Ability: Effective Payroll Assistant Required: No Beliefs That Will Affect Care: None Current Living Situation: Alone Other Information That Helps Us Care for You: No Feels Safe at Home: Yes Safety Concerns: Feels Safe At This Time Smoking Status: Former smoker Do You Dip or Chew Tobacco: No ; Smoking End Date: QUIT IN 'S ; Second Hand Exposure: No ; Hx Substance Use: No Review of Systems Review of Systems: All systems reviewed & are unremarkable except as noted in HPI & below Constitutional: as per Subjective / HPI Physical Exam Physical Exam: RLE NVSI +EHL/FHL/TA/GS SILT grossly, +2 DP pulse, compartments soft NT, limited painful ROM, 0-125 degrees of flexion, +crepitus. Constitutional: WD/WN, vitals as above Eyes: PERRL, conjunctivae normal, anicteric sclerae ENMT: external ear and nose normal, oropharynx normal Neck: trachea midline, no thyromegaly Respiratory: normal respiratory effort, lungs clear to auscultation Cardiovascular: RRR, no murmur, no edema Gastrointestinal (Abdomen): normal bowel sounds, soft, nontender, no hepatosplenomegaly Musculoskeletal: no cyanosis or clubbing, extremities motor strength 5/5 Skin: no rashes, warm and dry Neurologic: patellar DTR's 2+ bilat, sensation intact Psychiatric: A+Ox3, euthymic affect Lymphatic: no cervical or axillary lymphadenopathy Results & Data Diagnostic Findings Multiple views of the knee demonstrates severe tricompartmental DJD with complete loss of the medial and PF joint space. +osteophytes, +sclerosis, +subchondral cysts.
[2019-01-14] MEDS ORDERED: ACETAMINOPHEN 500 MG TAB PO SCH (06:00)
[2019-01-14] MEDS ORDERED: CeleBREX 200 MG CAP PO SCH ×2 (06:00→21:00)
[2019-01-14] MEDS ORDERED: dexAMETHasone 4 MG TAB PO SCH (06:00)
[2019-01-14] MEDS ORDERED: CLINDAMYCIN 600 MG/54 ML BAG IV SCH (06:00)
[2019-01-14] MEDS ORDERED: METOCLOPRAMIDE HCL 10 MG TABLET PO SCH (06:00)
[2019-01-14] MEDS ORDERED: FAMOTIDINE 20 MG TAB PO SCH (06:00)
[2019-01-14] MEDS ORDERED: LR 15ML/HR IV SCH (06:00)
[2019-01-14] MEDS ORDERED: TRANEXAMIC ACID 1,000 MG **IV Pre-op IV SCH (06:00)
[2019-01-14] MEDS ORDERED: ROPIVACAINE 0.5% HCL/PF 150 MG, BUPIVACAINE 0.5% MPF 30 ML, EPINEPHrine 30MG/30ML (OR U... INSTIL SCH (06:00)
[2019-01-14] MEDS ORDERED: BUPIVACAINE 0.5 % 5 MG/1 ML PF 10ML VIAL ONE (06:24)
[2019-01-14] MEDS ORDERED: ROPIVACAINE 0.5% 5 MG/ML 30 ML VIAL ONE (06:25)
[2019-01-14] MEDS ORDERED: TRANEXAMIC ACID 1,000 MG **IV Intra-op IV SCH (06:30)
[2019-01-14] MEDS ORDERED: MIDAZOLAM HCL 1 MG/ML 2ML VIAL ONE ×2 (06:41→08:19)
[2019-01-14] MEDS ORDERED: fentaNYL citrate 100 MCG/2 ML VIAL ONE (06:41)
[2019-01-14] MEDS ORDERED: ePHEDrine sulfate 50 MG/ML AMP IV PRN (06:53)
[2019-01-14] MEDS ORDERED: ATROPINE SULFATE 0.1 MG/ML 10ML SYR IV PRN (06:53)
[2019-01-14] MEDS ORDERED: ONDANSETRON INJ 2 MG/ML 2 ML VIAL IV PRN ×2 (06:53→10:57)
[2019-01-14] MEDS ORDERED: HYDROmorphone INJ 1 MG/ML SYRINGE IV PRN (06:53)
[2019-01-14] MEDS ORDERED: KETOROLAC 30 MG/ML VIAL IV PRN (06:53)
[2019-01-14] MEDS ORDERED: BACITRACIN INJ 50,000 UNIT VIAL ONE (06:55)
[2019-01-14] MEDS ORDERED: ORTHO JOINT ANESTHETIC ONE (06:55)
--- NOTE | 2019-01-14 07:07 | History & Physical Bridge Note ---
Date of Service January 14, 2019 History & Physical Bridge Note I have examined the patient, reviewed the History & Physical and in the interval since the performance of the History & Physical I have noted the following changes of clinical significance: no changes noted
[2019-01-14] MEDS ORDERED: PROPOFOL IV EMULSION 10 MG/ML 20 ML VIAL IV ONE (07:48)
[2019-01-14] MEDS ORDERED: DEXAMETHASONE SOD INJ 4 MG/ML VIAL ONE (07:49)
[2019-01-14] MEDS ORDERED: ONDANSETRON INJ 2 MG/ML 2 ML VIAL ONE (07:49)
--- NOTE | 2019-01-14 08:58 | Post Operative Brief Note ---
Immediate Post Op Note v1 Date of Surgery January 14, 2019 Pre & Post Diagnosis Operation Date: 01/14/19 07:15 Pre-Op Diagnosis: Degenerative joint disease of knee, right Post-Op Diagnosis: Degenerative joint disease of knee, right I identified the patient and participated in the time-out.: Yes Procedure Operation Date: 01/14/19 07:15 Actual Procedures p Right Total Knee Arthroplasty(Right) - Jameson Kim DO Surgeon Jameson Kim DO Hydrodynamics Teacher Dale Borja Estimated Blood Loss 50 Findings Consistent with Post-Op Diagnosis Fluids 1700 cc LR Specimens proximal tibia, distal femur bone fragments Anesthesia Type Spinal MAC Complications none Disposition Disposition: Recovery Room Overlapping Procedure I was present for: the critical portions of procedure. I was immediately available: during the entire case. Back up surgeon: was not required during procedure.
--- NOTE | 2019-01-14 09:09 | Operative Report ---
Post Operative Report Pre & Post Diagnosis Operation Date: 01/14/19 07:15 Pre-Op Diagnosis: Degenerative joint disease of knee, right Post-Op Diagnosis: Degenerative joint disease of knee, right I identified the patient and participated in the time-out.: Yes Procedure Operation Date: 01/14/19 07:15 Actual Procedures p Right Total Knee Arthroplasty(Right) - Jameson Kim DO Surgeon Jameson Kim DO Medical Researcher Dale Borja Estimated Blood Loss 50 Findings Consistent with Post-Op Diagnosis Fluids 1700 cc LR Specimens Proximal tibia and distal femur bone fragments Anesthesia Type Spinal MAC Complications none Disposition Disposition: Recovery Room Indications The patient is a 73-year-old for presents with long history of severe right knee tricompartmental DJD and failed outpatient conservative treatments including NSAIDs, bracing, injections and home walking/exercise program. The patient's symptoms have progressed to the point where it has been difficult to perform normal activities of daily living. I have indicated the patient for a right total knee arthroplasty, the risks and benefits and complications of the procedure include but are not limited to inf ection bleeding damage to bone, nerves, vessels, surrounding soft tissue, blood clots, loss of function, leg length discrepancy, dislocation, failure of the components, need for additional surgery and . The patient wished to proceed with surgery at this time and informed consent was obtained. Appropriate clearances were obtained. Description of Procedure COMPONENTS USED: Nalini persona knee system: Femur size 8 narrow, Tibia size D tibial articulating surface 10 PS, Patella 29 mm Following induction of spinal anesthesia, a tourniquet was applied to the proximal aspect of the thigh and the patient's right leg was prepped and draped in the usual sterile manner. A timeout was performed, patient identified and site mary confirmed. Appropriate pre-operative IV antibiotics were given. The limb was exsanguinated with an Esmarch bandage and tourniquet was inflated to 300 mmHg. A longitudinal midline incision was made over the anterior knee. Subcutaneous tissue was sharply dissected down to fascia. Electrocautery was used for hemostasis. Next a parapatellar arthrotomy was performed. Patella was everted and the knee was flexed. A Arguello retractor was used to expose the synovium above on the anterior aspect of the femur and removed down to bone. Next, the anterior fat pad was removed to aid in visualization. The medial face of the tibia was cleared of soft tissue first with a Bovie and a holloway elevator. This tissue was retracted posteriorly using a blunt Hohmann. Next, the extra-medullary tibial cutting guide was placed to the anterior aspect of the tibia. The tibia resection level was set taking 2mm from the defective tibial condyle. Resection depth was once again confirmed with david wing. The medial and lateral collateral ligament was protected with two Hohmann retractors. The tibia guide was removed and proximal tibial bone fragment removed utilizing straight osteotome, electrocautery and Oniel. Next, the distal femur intramedullary canal was accessed utilizing the step drill. The intramedullary distal femur cutting guide was placed into the canal and pinned into place. The distal femur was cut on the 5 degree +0 setting. Next the cutting guide was removed and the femur was sized. Care was taken to ensure appropriate sprinkler fitter apprentice all rotation and 3 degree holes were drilled. A size 8 4-in-1 cutting block was placed on the distal end of the femur and secured into place with two short headed screws. Two bent Hohmann retractors were placed to protect the medial and lateral collateral ligaments. The oscillating saw was used to cut anterior, posterior, anterior chamfer and posterior chamfer. The four and one cutting block was removed and bone fragments excised. Laminar network lead was placed laterally and the ACL and PCL were removed followed by the medial meniscus and posterior medial osteophytes. Aquamantys was utilized for any posterior medial bleeders and Orthomix injected into the posterior medial capsule. A laminar network lead was then placed in the medial compartment and the lateral meniscus and posterior osteophytes were removed. Aquamantys was utilized for any posterior lateral bleeders and Orthomix injected into the posterior lateral capsule. Next, drop luna and spacer block were placed with the leg in flexion and extension to assess alignment and flexion/extension gaps. Next, the proximal tibia was assessed and two bent Hohmans were placed medial and lateral to aid in visualization. The appropriate tibia size and rotation was selected and a size D tibial plate was pinned into place with appropriate rotation. Preparation of the tibia was completed utilizing the matching tibial drill and broach. I then turned my attention back to the distal femur in a trial femoral component was impacted into place. Appropriate femoral width was assessed and selected. Next the femur PS box cut guide was placed and cut made with the reciprocal saw and the PS box provisional placed. A trial size 10 tibia articular tray was placed and varus-valgus balance assessed in 0 degrees of extension and 30, 60 and 90 degrees of flexion. A final tibial articular surface size 10 PS was chosen. Assess was gained to the patella and caliper utilized to measure width. The patella reamer was utilized and remaining bone removed with oscillating saw. A size 29 mm patella button was selected and the patella pegs drilled. Trial patella button was placed and tracking was assessed. The knee was found to be well balanced, well aligned with excellent patella tracking. The trials were removed and final components were obtained and assembled. The knee was irrigated copiously with sterile saline solution mixed with bacitracin. Access to the proximal tibia was once again obtained utilizing to the Hohmans and the proximal tibia and distal femur were dried with lap sponges. The final components were cemented into place and all excess cement was removed. A trial tibial articular surface was placed while cemented hardened. Knee stability was once again assessed and the final component inserted. A Betadine soak was performed. After 3 minutes, the hip was once more irrigated with copious sterile saline solution with bacitracin. The knee was injected with the remaining Orthomix which includes a combination of Ropivicaine 0.5% 150mg, Bupivicaine 0.5%/Epinephrine 1:200,000 30ml, Toradol 30mg, Dexamethasone 4mg, Ketamine 10mg, Clonidine 100mcg and NSS 30ml solution. The capsulotomy was closed with #1 Vicryl followed by subcutaneous closure with 2-0 Vicryl suture and a 3-0 V-lock suture. Skin closure was performed using Prineo dressing followed by Telfa, 4 x 4s and gricelda wrap. Tourniquet was deflated at 91 minutes. The patient tolerated the procedure well and was taken to the PACU in stable condition. Due to the complex nature of the procedure, the entire surgery was performed with the operational assistance of Dale Borja PA-C. The certified surgical tech/first assistant, under direct supervision, was involved in the actual performance of all aspects of the surgical procedure including patient positioning, hemostasis, tissue retraction, instrument management and wound closure. I attest to the content of the Intraoperative Record and any orders documented therein. Any exceptions are noted below.
--- NOTE | 2019-01-14 10:11 | XRay Report ---
XR knee RT 1 or 2V routine CLINICAL HISTORY: Surgical Post Op COMPARISON: None. DISCUSSION: There are postsurgical changes of a total right knee arthroplasty and patellar resurfacin g. The femoral and tibial components appear well seated. There is air present within the soft tissues consistent with recent surgery. IMPRESSION: Postsurgical changes of a total right knee arthroplasty. Electronically signed by: Joss Kumar M.D. 01/14/2019 10:09 AM
[2019-01-14] MEDS ORDERED: SODIUM CHLORIDE 0.9% 1000ML 1,000 ML IV SCH (10:57)
[2019-01-14] MEDS ORDERED: MAGNESIUM HYDROXIDE SUSP 30 ML UDC PO PRN (10:57)
[2019-01-14] MEDS ORDERED: HYDROmorphone INJ 0.5 MG/0.5 ML SYR IV PRN (10:57)
[2019-01-14] MEDS ORDERED: BISACODYL 10 MG SUPP PR PRN (10:57)
[2019-01-14] MEDS ORDERED: METOCLOPRAMIDE HCL INJ 5 MG/ML 2 ML VIAL IV PRN (10:57)
[2019-01-14] MEDS ORDERED: NALOXONE HCL 0.4 MG/1 ML VIAL/CARP IV PRN (10:57)
[2019-01-14] MEDS: KETOROLAC TROMETHAMINE 15 MG/ML VIAL IV SCH ×3 (12:16→23:44)
--- NOTE | 2019-01-14 13:24 | Anesthesiology Progress Note ---
Date of Service January 14, 2019 Anesthesia Post Procedure Vital Signs Vital Signs: Temp Pulse Pulse Resp BP Pulse Ox 01/14/19 13:17 37 C 76 16 134/72 96 01/14/19 12:20 36.5 C 71 17 120/74 94 01/14/19 11:18 36.7 C 67 16 120/67 96 01/14/19 10:49 36.4 C L 68 16 120/69 95 01/14/19 10:20 36.8 C 68 16 116/64 97 01/14/19 10:16 36.6 C 66 16 138/54 L 97 01/14/19 10:05 36.6 C 74 18 121/63 99 01/14/19 09:55 79 22 144/63 H 97 01/14/19 09:45 72 18 139/66 99 01/14/19 09:35 36.6 C 80 12 134/62 98 01/14/19 06:14 36.4 C L 80 18 138/74 95 Transfer of Care Handoff Completed per policy Notes Mental Status: alert / awake / arousable Patient Amnestic to Procedure: Yes Nausea / Vomiting: adequately controlled Pain: adequately controlled Airway Patency, RR, SpO2: stable & adequate BP & HR: stable & adequate Hydration State: stable & adequate Anesthetic Complications: no major complications apparent
[2019-01-14] MEDS: ACETAMINOPHEN 500 MG TAB PO SCH ×2 (13:55→21:45)
[2019-01-14] MEDS: CLINDAMYCIN 600 MG in DEXTROSE 5% 50 ML IV SCH ×2 (15:36→23:44)
[2019-01-14] MEDS: OXYCODONE HCL IR 5 MG TAB (IMMEDIATE RELEASE) PO PRN ×2 (15:40→20:19)
--- NOTE | 2019-01-14 17:11 | Orthopedic Progress Note ---
Date of Service January 14, 2019 Assessment & Plan (1) Degenerative joint disease of knee, right: s/p R TKA -clinda x 24 -DVT ppx: SCDs, TEDs, ASA BID -WBAT RLE -PT/OT -PO XR demonstrates a well aligned well fixed prothesis without fracture/dislocation. -am labs -DC planning Subjective Post Operative Progress Note Patient seen sitting up in bed, comfortable, denies complaints, pain well controlled, no acute issues. Still feeling some effects of spinal anesthesia Review of Systems Review of Systems: All systems reviewed & are unremarkable except as noted in HPI & below Constitutional: as per Subjective / HPI Physical Exam Physical Exam: RLE PE limited secondary to spinal anesthesia, +2 SP pulse, compartments soft NT, dressing CDI Constitutional: WD/WN, vitals as above Results & Data Vital Signs (Past 12 Hours) Vital Signs Temp Pulse Pulse Resp BP Pulse Ox 01/14/19 14:58 36.6 C 74 17 105/64 95 01/14/19 13:17 37 C 76 16 134/72 96 01/14/19 12:20 36.5 C 71 17 120/74 94 01/14/19 11:18 36.7 C 67 16 120/67 96 01/14/19 10:49 36.4 C L 68 16 120/69 95 01/14/19 10:20 36.8 C 68 16 116/64 97 01/14/19 10:16 36.6 C 66 16 138/54 L 97 01/14/19 10:05 36.6 C 74 18 121/63 99 01/14/19 09:55 79 22 144/63 H 97 01/14/19 09:45 72 18 139/66 99 01/14/19 09:35 36.6 C 80 12 134/62 98 01/14/19 06:14 36.4 C L 80 18 138/74 95
[2019-01-14] MEDS: DOCUSATE SODIUM 100 MG CAP PO SCH (20:15)
[2019-01-14] MEDS ORDERED: ATORVASTATIN 40 MG TAB PO SCH (21:00)
[2019-01-14] MEDS ORDERED: SENNA 8.6 MG TAB PO SCH (21:00)
[2019-01-15] MEDS: KETOROLAC TROMETHAMINE 15 MG/ML VIAL IV SCH (05:53)
[2019-01-15] MEDS: ACETAMINOPHEN 500 MG TAB PO SCH (05:53)
[2019-01-15 07:07] LABS: Hematocrit (blood only) 31.5 % (37-47); Hemoglobin 10.3 g/dL (12.0-16.0); Mean Corpuscular Hgb Conc 32.7 g/dL (32-36); Mean Corpuscular Volume 85.6 fL (80-100); Mean Platelet Volume 10.7 fL (7.4-10.4); Platelet Count 199 K/uL (130-400); RDW Coefficient of Variation 14.2 % (11.5-14.5); RDW Standard Deviation 44.2 fL (36.4-46.3); Red Blood Count 3.68 M/uL (4.2-5.4); White Blood Count 11.55 K/uL (4.8-10.8)
[2019-01-15 07:31] LABS: BUN Creatinine Ratio 26.7 (10-20); Calcium 9.1 mg/dl (8.5-10.1); Creatinine Clr Calc Pharmacy 52.8 ml/min; Est GFR (African American) 61.9; Est GFR (Non-African American) 53.4; Potassium 4.2 mmol/L (3.5-5.1)
--- NOTE | 2019-01-15 08:07 | Anesthesiology Progress Note ---
Date of Service January 15, 2019 Anesthesia Post Procedure Vital Signs Vital Signs: Temp Pulse Pulse Pulse Resp BP Pulse Ox 01/15/19 07:28 37 C 55 L 16 121/70 95 01/15/19 03:14 36.6 C 75 16 107/60 95 01/14/19 23:45 36.6 C 76 16 127/60 94 01/14/19 19:15 36.7 C 75 17 92/64 L 94 01/14/19 14:58 36.6 C 74 17 105/64 95 01/14/19 13:17 37 C 76 16 134/72 96 01/14/19 12:20 36.5 C 71 17 120/74 94 01/14/19 11:18 36.7 C 67 16 120/67 96 01/14/19 10:49 36.4 C L 68 16 120/69 95 01/14/19 10:20 36.8 C 68 16 116/64 97 01/14/19 10:16 36.6 C 66 16 138/54 L 97 01/14/19 10:05 36.6 C 74 18 121/63 99 01/14/19 09:55 79 22 144/63 H 97 01/14/19 09:45 72 18 139/66 99 01/14/19 09:35 36.6 C 80 12 134/62 98 Pain Intensity Right Knee: Pain Intensity: 6 Notes Mental Status: alert / awake / arousable and participated in evaluation Patient Amnestic to Procedure: Yes Nausea / Vomiting: adequately controlled Pain: adequately controlled Airway Patency, RR, SpO2: stable & adequate BP & HR: stable & adequate Hydration State: stable & adequate Neuraxial Anesthesia: was administered and sensory block resolved Anesthetic Complications: no major complications apparent and Pt Satisfied with anesthetic care
[2019-01-15] MEDS: DOCUSATE SODIUM 100 MG CAP PO SCH (08:53)
[2019-01-15] MEDS ORDERED: LOSARTAN POTASSIUM 50 MG TAB PO SCH (09:00)
[2019-01-15] MEDS ORDERED: SERTRALINE HCL 50 MG TABLET PO SCH (09:00)
[2019-01-15] MEDS ORDERED: PANTOprazole 40 MG TAB PO SCH (09:00)
[2019-01-15] MEDS ORDERED: CeleBREX 200 MG CAP PO SCH (09:00)
[2019-01-15] MEDS ORDERED: MULTIVITAMIN TAB PO SCH (09:00)
[2019-01-15] MEDS ORDERED: ASPIRIN 325 MG ECTAB PO SCH (09:00)
--- NOTE | 2019-01-15 10:58 | Orthopedic Progress Note ---
Date of Service January 15, 2019 Assessment & Plan (1) Degenerative joint disease of knee, right: s/p R TKA -clinda x 24 -DVT ppx: SCDs, TEDs, ASA BID -WBAT RLE -PT/OT -PO XR demonstrates a well aligned well fixed prothesis without fracture/dislocation. -am labs - hgb 10.3 -DC planning - home with HH Subjective Post Operative Progress Note Patient seen sitting up in bed, comfortable, denies complaints, pain well controlled, no acute issues. Denies F/C/N/V/SOP/CP Review of Systems Review of Systems: All systems reviewed & are unremarkable except as noted in HPI & below Constitutional: as per Subjective / HPI Physical Exam Physical Exam: RLE NVSI +EHL/FHL/TA/GS SILT grossly, +2 DP pulse, compartments soft NT, dressing cdi. Constitutional: WD/WN, vitals as above Results & Data Vital Signs (Past 12 Hours) Vital Signs Temp Pulse Resp BP Pulse Ox 01/15/19 07:28 37 C 55 L 16 121/70 95 01/15/19 03:14 36.6 C 75 16 107/60 95 01/14/19 23:45 36.6 C 76 16 127/60 94 Laboratory Results Lab Results 12/25/18 12/25/18 12/25/18 Range/Units 13:12 13:12 13:12 WBC 6.78 (4.8-10.8) K/uL RBC 4.45 (4.2-5.4) M/uL Hgb 12.6 (12.0-16.0) g/dL Hct 38.1 (37-47) % MCV 85.6 (80-100) fL MCH 28.3 (25-34) pg MCHC 33.1 (32-36) g/dL RDW Std Deviation 44.7 (36.4-46.3) fL RDW Coeff of Arlene 14.3 (11.5-14.5) % Plt Count 264 (130-400) K/uL MPV 10.6 H (7.4-10.4) fL Immature Gran % (Auto) 0.1 % Neut % (Auto) 67.4 % Lymph % (Auto) 24.0 % [place] % (Auto) 6.0 % Eos % (Auto) 2.2 % Baso % (Auto) 0.3 % Immature Gran # (Auto) 0.01 (0.00-0.02) K/uL Neut # (Auto) 4.56 (1.4-6.5) K/uL Lymph # (Auto) 1.63 (1.2-3.4) K/uL [place] # (Auto) 0.41 (0.11-0.59) K/uL Eos # (Auto) 0.15 (0-0.5) K/uL Baso # (Auto) 0.02 (0-0.2) K/uL PT 10.3 (9.0-12.0) Seconds INR 1.0 (0.9-1.1) APTT 29.4 (21.0-31.0) Seconds PTT Ratio 1.1 Sodium 138 (136-145) mmol/L Potassium 4.0 (3.5-5.1) mmol/L Chloride 105 (98-107) mmol/L Carbon Dioxide 26 (21-32) mmol/L Anion Gap 7.0 (3-11) BUN 23 H (7-18) mg/dl Creatinine 0.93 (0.6-1.2) mg/dl Est Cr Clr Drug Dosing 60.1 ml/min Est GFR ( Amer) 71.7 Est GFR (Non-Af Amer) 61.8 BUN/Creatinine Ratio 24.2 H (10-20) Glucose 126 H (70-99) mg/dl Estimat Average Glucose mg/dl Hemoglobin A1c (4.5-5.6) % Calcium 10.0 (8.5-10.1) mg/dl Albumin 3.9 (3.4-5.0) gm/dl Urine Color Urine Appearance (Clear) Urine pH (4.5-7.5) Ur Specific [place] (1.000-1.030) Urine Protein (Negative) Urine Glucose (UA) (Negative) Urine Ketones (Negative) Urine Blood (Negative) Urine Nitrite (Negative) Urine Bilirubin (Negative) Urine Urobilinogen (Negative) Ur Leukocyte Esterase (Negative) Urine WBC (Auto) (0-5) /hpf Urine RBC (Auto) (0-4) /hpf U Hyaline Cast (Auto) (0-5) /lpf U Epithel Cells (Auto) (0-5) /lpf Urine Bacteria (Auto) (Negative) Blood Type Antibody Screen 12/25/18 12/25/18 12/25/18 Range/Units 13:12 13:12 Unknown WBC (4.8-10.8) K/uL RBC (4.2-5.4) M/uL Hgb (12.0-16.0) g/dL Hct (37-47) % MCV (80-100) fL MCH (25-34) pg MCHC (32-36) g/dL RDW Std Deviation (36.4-46.3) fL RDW Coeff of Arlene (11.5-14.5) % Plt Count (130-400) K/uL MPV (7.4-10.4) fL Immature Gran % (Auto) % Neut % (Auto) % Lymph % (Auto) % [place] % (Auto) % Eos % (Auto) % Baso % (Auto) % Immature Gran # (Auto) (0.00-0.02) K/uL Neut # (Auto) (1.4-6.5) K/uL Lymph # (Auto) (1.2-3.4) K/uL [place] # (Auto) (0.11-0.59) K/uL Eos # (Auto) (0-0.5) K/uL Baso # (Auto) (0-0.2) K/uL PT (9.0-12.0) Seconds INR (0.9-1.1) APTT (21.0-31.0) Seconds PTT Ratio Sodium (136-145) mmol/L Potassium (3.5-5.1) mmol/L Chloride (98-107) mmol/L Carbon Dioxide (21-32) mmol/L Anion Gap (3-11) BUN (7-18) mg/dl Creatinine (0.6-1.2) mg/dl Est Cr Clr Drug Dosing ml/min Est GFR ( Amer) Est GFR (Non-Af Amer) BUN/Creatinine Ratio (10-20) Glucose (70-99) mg/dl Estimat Average Glucose 117 mg/dl Hemoglobin A1c 5.7 H (4.5-5.6) % Calcium (8.5-10.1) mg/dl Albumin (3.4-5.0) gm/dl Urine Color Yellow Urine Appearance Clear (Clear) Urine pH 6.5 (4.5-7.5) Ur Specific [place] 1.014 (1.000-1.030) Urine Protein Negative (Negative) Urine Glucose (UA) Negative (Negative) Urine Ketones Negative (Negative) Urine Blood Negative (Negative) Urine Nitrite Negative (Negative) Urine Bilirubin Negative (Negative) Urine Urobilinogen Negative (Negative) Ur Leukocyte Esterase Trace H (Negative) Urine WBC (Auto) 1-5 (0-5) /hpf Urine RBC (Auto) 0-4 (0-4) /hpf U Hyaline Cast (Auto) 0 (0-5) /lpf U Epithel Cells (Auto) 10-20 H (0-5) /lpf Urine Bacteria (Auto) Negative (Negative) Blood Type A Positive Antibody Screen NEGATIVE 01/15/19 01/15/19 Range/Units 06:38 06:38 WBC 11.55 H (4.8-10.8) K/uL RBC 3.68 L (4.2-5.4) M/uL Hgb 10.3 L (12.0-16.0) g/dL Hct 31.5 L (37-47) % MCV 85.6 (80-100) fL MCH 28.0 (25-34) pg MCHC 32.7 (32-36) g/dL RDW Std Deviation 44.2 (36.4-46.3) fL RDW Coeff of Arlene 14.2 (11.5-14.5) % Plt Count 199 (130-400) K/uL MPV 10.7 H (7.4-10.4) fL Immature Gran % (Auto) % Neut % (Auto) % Lymph % (Auto) % [place] % (Auto) % Eos % (Auto) % Baso % (Auto) % Immature Gran # (Auto) (0.00-0.02) K/uL Neut # (Auto) (1.4-6.5) K/uL Lymph # (Auto) (1.2-3.4) K/uL [place] # (Auto) (0.11-0.59) K/uL Eos # (Auto) (0-0.5) K/uL Baso # (Auto) (0-0.2) K/uL PT (9.0-12.0) Seconds INR (0.9-1.1) APTT (21.0-31.0) Seconds PTT Ratio Sodium 139 (136-145) mmol/L Potassium 4.2 (3.5-5.1) mmol/L Chloride 109 H (98-107) mmol/L Carbon Dioxide 24 (21-32) mmol/L Anion Gap 6.0 (3-11) BUN 28 H (7-18) mg/dl Creatinine 1.05 (0.6-1.2) mg/dl Est Cr Clr Drug Dosing 52.8 ml/min Est GFR ( Amer) 61.9 Est GFR (Non-Af Amer) 53.4 BUN/Creatinine Ratio 26.7 H (10-20) Glucose 115 H (70-99) mg/dl Estimat Average Glucose mg/dl Hemoglobin A1c (4.5-5.6) % Calcium 9.1 (8.5-10.1) mg/dl Albumin (3.4-5.0) gm/dl Urine Color Urine Appearance (Clear) Urine pH (4.5-7.5) Ur Specific [place] (1.000-1.030) Urine Protein (Negative) Urine Glucose (UA) (Negative) Urine Ketones (Negative) Urine Blood (Negative) Urine Nitrite (Negative) Urine Bilirubin (Negative) Urine Urobilinogen (Negative) Ur Leukocyte Esterase (Negative) Urine WBC (Auto) (0-5) /hpf Urine RBC (Auto) (0-4) /hpf U Hyaline Cast (Auto) (0-5) /lpf U Epithel Cells (Auto) (0-5) /lpf Urine Bacteria (Auto) (Negative) Blood Type Antibody Screen
[2019-01-15] MEDS: OXYCODONE HCL IR 5 MG TAB (IMMEDIATE RELEASE) PO PRN (11:32)
--- NOTE | 2019-01-18 18:45 | Discharge Summary ---
Date of Service January 15, 2019 Admission HPI Per Admitting Provider The patient is a 73 year old female who presents with complaints of severe right knee pain and DJD. The patient has failed outpatient conservative treatments to this point which included NSAIDs, IA corticosteroid injection, home exercise/walking program. The patient's pain and limited function have progressed to the point where they severely hinder their activities of daily living and they no longer tolerate exercise programs. They are requesting to proceed with total knee replacement surgery. Principal Diagnosis Right total knee replacement Discharge Exam RLE NVSI +EHL/FHL/TA/GS SILT grossly, +2 DP pulse, compartments soft NT, dressing cdi. Constitutional WD/WN, vitals as above Discharge Data Allergies Allergy/AdvReac Type Severity Reaction Status Date / Time Penicillins Allergy Unknown RASH Verified 01/14/19 06:01 (MOUTH, SKIN) adhesive tape AdvReac Unknown RASH WITH Verified 01/14/19 06:01 TAPE Consultations 01/14/19 10:57 Consult Case Management - Discharge Planning Routine Procedures Performed Operation Date: 01/14/19 07:15 Actual Procedures p Right Total Knee Arthroplasty(Right) - Jameson Kim DO Ordered Studies 01/14/19 05:00 US - OR guided needle placemen Routine Hospital Course (1) Degenerative joint disease of knee, right: The patient is a 73 -year-old female who presents with long standing history of severe right knee DJD and failed outpatient conservative treatments. The patient's symptoms have progressed to the point where it has been difficult to perform even normal activities of daily living. I indicated the patient for a right total knee arthroplasty, the risks, benefits and complications of the procedure include but not limited to infection, bleeding, damage to bone, nerves, vessels, surrounding soft tissue, may develop blood clots, loss of function, leg length discrepancy, dislocation, failure of the components, loosening of the components, the need for additional surgery and . The patient wished to proceed with surgery at this time and informed consent was obtained. Hospital Course: On 01/14/19 the patient was taken to the operating room, adequate anesthesia administered and underwent a right total knee arthroplasty. The patient tolerated the procedure well and was taken to the PACU in stable condition. Post-operatively the patient was started on a DVT ppx medication and given appropriate IV antibiotics. Consults were placed to physical therapy, occupational therapy and case management. On POD#1, the patient did well overnight and their pain was well controlled. Labs were drawn and the Hgb was 10.3. The patient progressed well with PT. Dressings were changed at this time and the incision was clean, dry and intact. The patients hospital stay was relatively uneventful and they were deemed stable by the orthopedic team and consultants to be discharged home with HH on 01/15/19. Discharge Instructions: Upon discharge the patient may weight bear as tolerates through their operative extremity. They were instructed to keep the incision clean and dry at all times. The patient may shower but should not submerge the incision, avoid bathing, pools and hot tubes. The patient was given a script for pain medication and should take as instructed. The patient was given a script for DVT ppx 325mg ASA BID and should take as directed. The patient was instructed to not drive or travel for long distances until cleared to do so. If the patient develops any symptoms of fevers, chills, nausea, vomiting, increased redness, swelling, pain or drainage from the surgical site, they should notify the office and/or proceed to the nearest emergency room. The patient should follow up in 10-14 days after surgery for their routine post-operative follow-up appointment and should call the office to confirm the date and time. s/p R TKA -clinda x 24 -DVT ppx: SCDs, TEDs, ASA BID -WBAT RLE -PT/OT -PO XR demonstrates a well aligned well fixed prothesis without fracture/dislocation. -am labs - hgb 10.3 -DC planning - home with HH Total Time Total Time Spent Total Time Spent (In Minutes): 30 minutes Total Time Includes: Examination of the Patient, Discharge Planning, Medication Reconciliation and Communication With Other Providers Discharge Plan Discharge Items Patient Disposition: Home - Home Health Services Reason For Visit: Right knee osteoarthritis Discharge Diagnosis: Right total knee replacement Condition on Discharge: Good Activity: Per Instructions section Lifting: Wait until after follow-up appointment Bathing: Keep incision dry Bathing Comment: No bathing, pools or hot tubs. Sexual Activity: Wait until after follow-up appointment Exercise/Sports: Wait until after follow-up appointment Driving/Machine Use: No driving. Weightbearing: Full weightbearing Non-emergency contact: Primary Care Provider and Surgeon Call non-emergency contact if: you have any medication questions, your symptoms worsen, your pain is not controlled, your pain is worsening, your pain is unusual for you, your pain is concerning for you, you have a fever, your temperature is above 101, your wound has increased redness, your wound has increased drainage and your wound pain has increased Follow-up/Referrals: Ronaldo Lopez M.D. [Primary Care Provider] - Diet: Regular Addtl Attending Provider Instructions: ACTIVITY RECOMMENDATIONS: SELF CARE INSTRUCTIONS AFTER TOTAL KNEE REPLACEMENT A. You may need to continue a physical therapy program after discharge from the hospital. There are several options available to you. Your doctor will assist you in selecting the best one for you. 1. An out-patient facility 2 to 3 times a week for therapy or home therapy. 2. Continue working on all exercises taught to you in the hospital. Your goals should be to increase bending of your knee to 90 degrees and beyond and to fully straighten your knee. B. You may progress at your own pace from walking with a walker or crutches to a cane; then to no assistive devices. C. Make walking a part of your daily routine. Be up as much as comfortable with rest periods throughout the day. Rest with leg elevation is very important. Use the ice wrap frequently for the first 3-4 weeks. D. There are no restrictions on activities. You may ride in a car, shop, participate in child development director and all social activities. E. Wear the long elastic stockings (CHAYA hose) 20 hours a day for 2 weeks after surgery. They can be removed several times a day for laundering and for a bath. F. You may shower, no tub baths until cleared by your doctor. SPECIAL CARE INSTRUCTIONS: VERY IMPORTANT TO READ AND REVIEW A. There are a few signs you need to watch for after you are home. Call [facility] if you notice any of the followin. Increased severe knee pain. Some pain is expected especially when you exercise. 2. Increased swelling in your leg or knee; pain or swelling of the calf muscle in either lower leg. 3. Any fluid drainage from the incision. 4. Shortness of breath or chest pain. B. Please call [facility] [place] at if you have any concerns or questions about your operation or recovery. The doctor or his nurse will return your call promptly. C. You must take antibiotics before dental work, bladder, bowel or other surgery. Your doctor will provide you with a permanent care to carry describing this precaution. IMPORTANT: * REMEMBER TO TAKE ASPIRIN, 325 MG, TWICE DAILY FOR 4 WEEKS UNLESS OTHERWISE DIRECTED. THIS IS YOUR BLOOD THINNER. * HIGH RISK PATIENTS MAY BE PRESCRIBED A STRONGER BLOOD THINNER. THIS WILL BE PROVIDED AT DISCHARGE. * CALL IF INCREASED PAIN, REDNESS, DRAINAGE OR FEVER GREATER THAT 101. * WEAR CHAYA HOSE 20 HOURS PER DAY FOR 2 WEEKS. *DERMABOND Prineo- This is a mesh tape dressing that is covered with glue. It should remain in place until the incision is properly healed, usually 10-14 days. This dressing is designed to naturally slough off. You may trim the excess mesh tape as it peels off. Incision may be briefly wet in a shower. Dry immediately by blotting with a clean, dry towel. Do not bath or swim until instructed by your doctor. Do not scratch, rub, or pick at the dressing. Do not apply any topical ointments or lotions until dressing is completely removed and/or instructed by your doctor. There may be a small piece of suture material at one end of your incision. Do not pull or trim this. If it is bothersome or catching on clothing, you may cover it with a band-aid. IF INCISION IS LEAKING THROUGH DRESSING, CALL THE OFFICE . FOLLOW UP VISIT: If appointment is not already scheduled: Please call [facility] [place] [facility] to make a follow-up appointment for 2 weeks after your surgery at . Pending Studies at Discharge: No Stand-Alone Forms: My [facility], Opioid Pain Management, Smoking Cessation Medications and DC Order Prescriptions: New celecoxib [Celebrex] 200 mg Capsule 200 mg PO BID PRN (Reason: pain/inflammation) Qty: 28 RF: 0 acetaminophen [Tylenol Extra Strength] 500 mg Tablet 1,000 mg PO Q8 PRN (Reason: pain) Qty: 90 RF: 0 aspirin 325 mg Tablet,Delayed Release (Dr/Ec) 325 mg PO BID Qty: 56 RF: 0 oxycodone 5 mg Tablet 5 mg PO Q6H MDD 6 tabs PRN (Reason: pain) Qty: 30 RF: 0 sennosides [Senokot] 8.6 mg Tablet 17.2 mg PO HS PRN (Reason: constipation) Qty: 28 RF: 0 Continued Probiotic 3 billion cell Capsule 3,000 mmu cells PO QAM RF: 0 multivitamin Tablet 1 tab PO QAM RF: 0 losartan 50 mg Tablet 50 mg PO QAM RF: 0 atorvastatin 40 mg Tablet 40 mg PO HS RF: 0 sertraline 50 mg Tablet 50 mg PO QAM RF: 0 Calcium 600 + D(3) 600 mg calcium- 200 unit Capsule 1 cap PO BID RF: 0 omeprazole 20 mg Tablet,Delayed Release (Dr/Ec) 20 mg PO QAM RF: 0 diclofenac sodium [Voltaren] 1 % Gel TOPICAL BID PRN (Reason: Pain) RF: 0 Discontinued aspirin 325 mg Tablet 325 mg PO QAM RF: 0 meloxicam 15 mg Tablet 15 mg PO QAM RF: 0 acetaminophen [Tylenol Extra Strength] 500 mg Tablet 1,000 mg PO Q8H PRN (Reason: Pain) RF: 0 Discharge Orders: Discharge Order (Routine); Ordered 01/15/19 Ordered By: Jameson Sorto/Other Patient Handouts: Surgery Prevent DVT After, Replacement Total Knee Dc Admission Data Admit Date/Time: 01/14/19 09:40 Attending Provider: Jameson Kim Admit Provider: Jameson Kim Primary Care Provider: Ronaldo Lopez Other Interventions: Discharge Summary Assessment (RN) Last Done: 01/15/19 11:08 DC Date/Time DO NOT enter until pt leaves facility: 01/15/19 11:45
== END 2019-01-15 11:45 | disposition home health service (06) | DRG 470 ==
LOC: ASU 05:34 → 3E 09:40